=== PATIENT | female | born 1985 | race African-American/Black ===

== ENCOUNTER 2017-01-08 03:39 | Inpatient (IN) | payer OTHER ==
[2017-01-08] MEDS ORDERED: DEXTROSE 5%-LACTATED RINGERS 1,000 ML IV SCH (04:30)
[2017-01-08] MEDS ORDERED: PROMETHAZINE HCL 25 MG/1 ML VIAL IVPUSH ONE (04:33)
[2017-01-08] MEDS ORDERED: BUTORPHANOL TARTRATE 1 MG/ML VIAL IVPB ONE (04:33)
[2017-01-08] MEDS ORDERED: AMPICILLIN - 2 GM in SODIUM CHLORIDE 100 ML IVPB ONE (04:36)
[2017-01-08 04:41] LABS: BASOPHIL 0.4 % (0-2.0); EOSINOPHIL 1.2 % (0-4.5); MCH 23.7 pg (25.7-33.7); MCHC 32.3 g/dl (32.0-36.0); MEAN CELL VOLUME 73.2 fl (80-96); NEUTROPHILS 73.9 % (42.8-82.8); PLATELET COUNT 138 K/MM3 (134-434); RDW 15.5 % (11.6-15.6); WHITE BLOOD COUNT 9.5 K/mm3 (4.0-10.0)
[2017-01-08 05:02] LABS: INR 0.95 (0.82-1.09); PROTHROMBIN TIME (PATIENT) 10.4 SEC (9.98-11.88)
[2017-01-08 05:05] LABS: ACTIVATED PTT 26.2 SECONDS (26.9-34.4)
--- NOTE | 2017-01-08 05:05 | HP ---
Past Medical History - Primary Care Physician PCP:: Carmen Govea - Admission Chief Complaint: 31 yrs , , 40.2/7 weeks iup , with previous LFTC/ section , onset LP since 2.00AM & SROM since 3.00AM , requests for trial History of Present Illness: care late transferred from [facility] , to [address] [place] [address] at 34 weeks gestation . chart reviewed .wt gain 50 lbs 06/04/16 sono 9.1 weeks, assigned EDC as 01/06/17 O Pos, Rpr nr, Hiv neg, neg, Hbsag neg, , Rubella immune , Sickle neg, pap NiLM, quad screen neg, GCT 139 ( on 10/03/16), 3 hr GTT ( 71, 173, 143, 122) , PPD neg ( 07/13/16) 36 weeks culture 12/09/16 , gc/ct neg,GBS pos, h/h 10.7/33.2. 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 Weeks Gestation by Dates: 39.3 ...EDC by Dates: 01/12/17 ...EDC by Sono: 01/06/17 (40.2 ) Heme/Onc: Yes: Anemia Infectious Disease: No: AIDS, HIV, STD's, Tuberculosis Psych: No: Addictions, Anxiety, Bipolar, Depression Endocrine: No: Diabetes Insipidus, Diabetes Mellitus - Past Surgical History Past Surgical History: Yes: Appendectomy (2001), (05/10/2015) Hx Myomectomy: No Hx Transabdominal Cerclage: No - Smoking History Smoking history: Never smoked Have you smoked in the past 12 months: No - Alcohol/Substance Use Hx Alcohol Use: No History of Substance Use: reports: None Home Medications - Allergies Allergies/Adverse Reactions: Allergies Allergy/AdvReac Type Severity Reaction Status Date / Time No Known Allergies Allergy Verified 01/08/17 04:32 - Home Medications Home Medications: Ambulatory Orders Ferrous Sulfate [Feosol] 325 mg PO BID 01/08/17 Vitamins (Sjr) - 1 tab PO DAILY 01/08/17 Physical Exam - Maternity Vital Signs: Selected Entries 01/08/17 04:00 Temperature 98.5 F Pulse Rate 107 H Blood Pressure 126/87 Weight 179 lb Constitutional: Yes: Well Nourished, Mild Distress, Obese Eyes: Yes: WNL HENT: Yes: WNL, Normocephalic Neck: Yes: WNL Cardiovascular: Yes: WNL, Regular Rate and Rhythm Lungs: Clear to auscultation Breast(s): Yes: WNL - Abdominal Exam/OB Fundal Height: 38 Number of Fetuses: Single Presentation: Vertex Contractions: Yes Regularity: Irregular (3-5 min) Intensity: Mild/Mod Monitor Mode: External Heart Rate (range): 155-160 Heart Rate Location: [facility] Category: I Accelerations: Uniform Decelerations: None - Vaginal Exam/OB Vaginal Bleediing: No Speculum Exam: No Dilatation (cm): 2-3 Effacement (%): 60 Amniotic Membrane Status: Ruptured Nitrazine Test: Positive Amniotic Fluid: Yes: Clear Presentation: Vertex/Position Station: -3 - Physical Exam Musculoskeletal: Yes: WNL Extremities: Yes: WNL. No: Calf Tenderness Edema: Yes Edema: LLE: 1+, RLE: 1+ Integumentary: Yes: Incision (old pfannensteil scar) Deep Tendon Reflex Grade: Normal +2 ...Motor Strength: WNL Psychiatric: Yes: WNL, Alert, Oriented - Labs Lab Results: Laboratory Tests 01/08/17 01/08/17 01/08/17 04:30 04:30 04:30 WBC 9.5 Hgb 11.6 Hct 35.8 Plt Count 138 Neutrophils % 73.9 Lymphocytes % 17.8 PT with INR 10.40 INR 0.95 PTT (Actin FS) 26.2 L Sodium 138 Potassium 3.9 Chloride 105 Carbon Dioxide 21 BUN 6 L Creatinine 0.6 Random Glucose 161 H Calcium 9.0 Problem List - Problems (1) Post term over 40 weeks Code(s): O48.0 - POST-TERM (2) Previous section Code(s): Z98.891 - HISTORY OF UTERINE SCAR FROM PREVIOUS SURGERY (3) SROM (spontaneous rupture of membranes) Code(s): FIF8921 - (4) Labor established Code(s): MCP0183 - (5) Positive GBS test Code(s): B95.1 - STREPTOCOCCUS, GROUP B, CAUSING DISEASES CLASSD ELSWHR Assessment/Plan 31 yrs , 40.2 weeks by sono, 39.3/7 weeks by dates , previous lftc/s , GBS pos , presented with srom & early labor pt desires Plan TOLAC pt explained r/b/a of trial after c/section possible rupture ut, distress, hemorrhage etc she understands , desires TOLAC GBS prophylaxis stadol + phenrgan for labor analgesia
[2017-01-08 05:07] LABS: ANION GAP 12 (8-16); CO2 21 mmol/L (21-32); CREATININE 0.6 mg/dL (0.55-1.02); GLUCOSE,RANDOM 161 mg/dL (74-106)
[2017-01-08 05:50] VITALS: BMI 28.8
[2017-01-08] MEDS ORDERED: CITRIC ACID/SODIUM CITRATE 30 ML UNIT-DOSE CUP PO ONE (06:00)
[2017-01-08] MEDS ORDERED: ELECTROLYTE-148 SOLN 1,000 ML IV SCH (06:00)
--- NOTE | 2017-01-08 06:09 | PN ---
Progress Note, Labor Vaginal Exam #1 Labor Exam Date: 01/08/17 Labor Exam Time: 05:45 Heart Rate (range): 170 Dilatation: 2cm Effacement (%): 60 Amniotic Membrane Status: Ruptured Presentation: Vertex/Position Station: -3 Remarks: uc irregular , 3-5 min mild tp moderate FHr cat-2 she receieved 2 gm of Iv Ampicillin at 4.30 AM Plan In view of tachycardia, previous c/section, early labor , Pos GBS I recommended her, It will be prudent to perform repeat c/section now instead od continuing trial of labor . pt agrees . Plan delivery by repeat C/section Selected Entries 01/08/17 05:00 Temperature 98.2 F Pulse Rate 102 H Blood Pressure 116/64
[2017-01-08 07:56] LABS: ARTERIAL BLOOD GAS BASE EXCESS -9.8 meq/l (-2-2); ARTERIAL BLOOD GAS HCO3 23.6 meq/L (22-26); ARTERIAL BLOOD GAS PO2 11.8 mmHg (80-100)
[2017-01-08 07:58] LABS: LPM/O2% 21%; PT. ON O2? NO
[2017-01-08 07:59] LABS: ARTERIAL BLD GAS O2 SATURATION 9.8 % (90-98.9); ARTERIAL BLOOD GAS BASE EXCESS -8.3 meq/l (-2-2); ARTERIAL BLOOD GAS HCO3 22.4 meq/L (22-26); ARTERIAL BLOOD GAS PO2 20.5 mmHg (80-100); TYPE OF O2 room air
[2017-01-08 08:00] LABS: ARTERIAL BLOOD GAS pH 7.07 (7.35-7.45); PT. ON O2? no
[2017-01-08 08:01] LABS: ARTERIAL BLD GAS O2 SATURATION 24.1 % (90-98.9); ARTERIAL BLOOD GAS pH 7.15 (7.35-7.45); LPM/O2% 21%; TYPE OF O2 room air
[2017-01-08] MEDS ORDERED: ONDANSETRON 4 MG/2 ML VIAL IVPUSH PRN (08:16)
[2017-01-08] MEDS ORDERED: METHYLERGONOVINE MALEATE 0.2 MG/1 ML AMP IM PRN (09:29)
[2017-01-08] MEDS: D5W-LR W/ 20 UNITS OXYTOCIN 1,000 ML IV SCH ×2 (09:55→18:18)
[2017-01-08] MEDS: IBUPROFEN 800 MG/8 ML IJ IVPB PRN ×2 (09:55→21:22)
[2017-01-08] MEDS ORDERED: CEFAZOLIN 1 GM in DEXTROSE 5%-WATER - 50 ML IVPB SCH (10:00)
--- NOTE | 2017-01-08 12:59 | PN ---
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 later transfer at , [facility] GBS pos , one dose of IV Ampicillin 2gm given FHR tachycardia 170-180 noted, non reassuring FHR diagnosed Intraop meconium stained fluid noed, no fluid , appeared to be terminal meconium Intraop course was uneventful
--- NOTE | 2017-01-08 13:07 | OP ---
Operative Note - Note: Operative Date: 01/08/17 Pre-Operative Diagnosis: 40.2 weeks, failed TOLAC, Non reassuring FHR , tachycardia , pos GBS Operation: Repeat LFTC/section Findings: 7.30 AM, baby Boy, Vx Lot, 9/9, wt 7'6" Both tubes & ovaries normal Dr Zafar Case present in OR . Intraop 2 gm Iv Ancef was given prior to incision Surgeon: Carmen Govea Patient Sitter: Riaz Ahmadi Anesthesiologist/HEDGE FUND PRINCIPAL: Jeffry Marsh Anesthesia: Spinal Specimens Removed: placenta. cord blood gas. cord blood Estimated Blood Loss (mls): 800 Drains, Volume Out (mls): 100 (matthew milagros color ) Operative Report Dictated: Yes
[2017-01-08] MEDS: CEFAZOLIN 1 GM in DEXTROSE 5%-WATER - 50 ML IVPB SCH ×2 (13:47→23:24)
--- NOTE | 2017-01-08 13:50 | OP ---
DATE OF OPERATION: 01/08/2017 PREOPERATIVE DIAGNOSIS: A 40.2-week failed trial of labor after section, nonreassuring heart, tachycardia, and rupture of membranes. ANESTHESIA: Spinal anesthesia. SURGEON: Carmen Govea MD ROCKET ENGINE COMPONENT MECHANIC SURGEON: MAT Avila ANESTHESIOLOGIST: Jeffry Marsh MD INTERVENTIONAL PHYSIATRIST: Andrade Saldivar MD FINDINGS: This is a 31-year-old 3, para 1-0-1-1, is 40.2 weeks, presented in labor and rupture of membranes. Labor since 2 a.m., rupture of membranes since 3 a.m., wanted to have a trial of labor after . She is GBS positive. She was given 2 g of IV ampicillin. After a couple of hours, tachycardia to 170-180 beats per minute was noted, so it was decided to deliver the patient by . There was no change in the cervical dilatation beyond 2-3 cm dilatation, 60% effacement. DESCRIPTION OF PROCEDURE: The patient was taken to the operating room. Hicks catheter was placed and then the abdomen was shaved, prepped. Spinal anesthesia was given. She was placed in supine position. Previous keloid incision scar was excised. Skin and subcutaneous tissue, anterior rectus sheath were incised transversely. Bleeding points were clamped and cauterized, then the rectus muscle was from the rectus sheath. Parietal peritoneum was opened vertically. Lower flap of the peritoneum was incised transversely, then lower uterine segment was incised transversely. Amniotic fluid was minimal and meconium was noted. Baby was delivered from LOT position at 7:30 a.m. Baby's was 9, 9, baby boy, and 7 pounds 6 ounces was the weight. Cord was clamped, and a cord segment was collected for the cord blood gases, and also the cord blood was collected. Placenta was removed completely with the membranes and sent for pathology examination. Then the uterus was delivered out of the incision. Uterine cavity was cleaned and the uterine incision was closed in 2 layers. First layer was a continuous locking with Biosyn 0 suture. Second layer was a continuous intermittent locking with the Biosyn 0 suture. Hemostasis was verified, and bladder peritoneum was closed with interrupted sutures with Biosyn 0 suture. Both tubes and ovaries were normal. Irrigation was done. Uterus was placed back into the peritoneal cavity. Sponge, instrument, needle count was correct, and then the closure of the abdomen was done. Parietal peritoneum was closed with Vicryl 0 suture. Muscles were approximated together with Biosyn 0 suture. Interrupted sutures were taken. Then the anterior rectus sheath was from the skin adhesions, and then anterior rectus sheath was closed with 0 Vicryl suture. Continuous sutures were taken. Hemostasis was noted. Then subcutaneous tissue hemostasis was checked, and then interrupted sutures were taken in subcutaneous tissue with the Biosyn 0 suture. Then skin was approximated with 4-0 Biosyn V-Loc stitch on a V-Loc needle. The patient tolerated the procedure well. Pressure dressing was applied. Before that, Steri-Strips also were used. Blood clots were removed from the vagina. She was sent to the recovery room in stable condition. Estimated blood loss was 800 mL, and urine output was 100 mL. Nelson [id number]
[2017-01-08] MEDS: AMPICILLIN - 1 GM in SODIUM CHLORIDE 100 ML IVPB SCH ×2 (13:53→13:54)
[2017-01-08] MEDS ORDERED: ceFAZolin SODIUM 1 GM VIAL ONE (21:57)
[2017-01-08] MEDS ORDERED: DEXTROSE 5%-WATER - 50 ML IVPB ONE (21:57)
[2017-01-09] MEDS: D5W-LR W/ 20 UNITS OXYTOCIN 1,000 ML IV SCH (04:30)
[2017-01-09] MEDS ORDERED: ceFAZolin SODIUM 1 GM VIAL ONE (05:47)
[2017-01-09] MEDS ORDERED: DEXTROSE 5%-WATER - 50 ML IVPB ONE (05:47)
[2017-01-09] MEDS: CEFAZOLIN 1 GM in DEXTROSE 5%-WATER - 50 ML IVPB SCH (05:53)
[2017-01-09] MEDS: IBUPROFEN 800 MG/8 ML IJ IVPB PRN (06:17)
[2017-01-09] MEDS ORDERED: oxyCODONE HCL 5 MG TABLET PO PRN (08:00)
[2017-01-09 08:52] LABS: BASOPHIL 0.2 % (0-2.0); EOSINOPHIL 0.6 % (0-4.5); MCH 22.6 pg (25.7-33.7); MEAN PLT VOLUME 9.9 fl (7.5-11.1); NEUTROPHILS 84.4 % (42.8-82.8); PLATELET COUNT 139 K/MM3 (134-434); RDW 15.4 % (11.6-15.6)
--- NOTE | 2017-01-09 09:03 | PN ---
Progress Note, Physician Chief Complaint: Pt. ambulating and voiding, pain controlled, no anesthesia complaints. - Current Medication List Current Medications: Active Medications Acetaminophen (Tylenol -) 650 mg PO Q4H PRN PRN Reason: FEVER OR PAIN Bisacodyl (Dulcolax Suppository -) 10 mg RC PRN PRN PRN Reason: CONSTIPATION Diphenhydramine HCl (Benadryl Injection -) 25 mg IVPUSH Q4H PRN PRN Reason: itching Last Admin: 01/08/17 09:55 Dose: 25 mg Diphtheria/Tetanus/Acell Pertussis (Boostrix -) 0.5 ml IM .ONCE ONE Stop: 01/09/17 10:01 Enoxaparin Sodium (Lovenox -) 40 mg SQ DAILY [facility] Ferrous Sulfate (Feosol -) 325 mg PO BID [facility] Dextrose/Lactated Ringer's (Pitocin 20 Units In D5-Lr -) 1,000 mls @ 125 mls/ hr IV ASDIR [facility] Last Admin: 01/09/17 04:30 Dose: 125 mls/hr Cefazolin Sodium 1 gm/ (Dextrose) 50 mls @ 100 mls/hr IVPB Q8H [facility] Stop: 01/09/17 13:59 Last Admin: 01/09/17 05:53 Dose: 100 mls/hr Ibuprofen (Motrin -) 600 mg PO Q4H PRN PRN Reason: PAIN Methylergonovine Maleate (Methergine Injection -) 0.2 mg IM Q4H PRN PRN Reason: Excessive Bleeding (L&D) Oxycodone HCl (Roxicodone -) 5 mg PO Q4H PRN PRN Reason: PAIN LEVEL 1-5 Oxycodone HCl (Roxicodone -) 10 mg PO Q4H PRN PRN Reason: PAIN LEVEL 6-10 Multivit/Folic Acid/Iron ( Vitamins (Sjr) -) 1 tab PO DAILY [facility] Senna/Docusate Sodium (Pericolace -) 2 tablet PO HS PRN PRN Reason: CONSTIPATION Simethicone (Mylicon -) 80 mg PO Q4H PRN PRN Reason: GAS - Objective Vital Signs: Vital Signs Temperature 98.0 F 01/09/17 05:33 Pulse Rate 87 01/09/17 05:33 Respiratory Rate 18 01/09/17 06:08 Blood Pressure 110/67 01/09/17 05:33 O2 Sat by Pulse Oximetry (%) 100 01/08/17 09:45 Constitutional: Yes: Well Nourished, No Distress, Calm Musculoskeletal: Yes: WNL Neurological: Yes: WNL, Alert, Oriented ...Motor Strength: WNL Labs: CBC, BMP 01/09/17 07:10 01/08/17 04:30 INR, PTT INR 0.95 (0.82-1.09) 01/08/17 04:30 Assessment/Plan POD#1 s/p Repeat under spinal with duramorph. Doing well. D/C from anesthesia care.
[2017-01-09] MEDS ORDERED: BISACODYL 10 MG SUPP.RECT RC PRN (09:29)
--- NOTE | 2017-01-09 09:51 | PN ---
Post Progress Note - Subjective Subjective: 31 yo Para 2, status post repeat , seen and evaluated. Doing well. Post Day: 1 Type of Delivery: Repeat C/S Vital Signs: Vital Signs Temperature 98.0 F 01/09/17 05:33 Pulse Rate 87 01/09/17 05:33 Respiratory Rate 18 01/09/17 06:08 Blood Pressure 110/67 01/09/17 05:33 O2 Sat by Pulse Oximetry (%) 100 01/08/17 09:45 Breast Exam: Yes: Soft Uterus: Yes: Fundus Firm Incision: Yes: Dressing dry and intact Abdomen/GI: Yes: Abdomen soft, Tolerating PO Lochia: Yes: Rubra Lochia, amount: Small Extremities: Yes: Calves non-tender Perineum: Yes: Intact Activity: Ambulating - Labs Labs: CBC WBC 15.0 K/mm3 (4.0-10.0) H D 01/09/17 07:10 RBC 4.56 M/mm3 (3.60-5.2) 01/09/17 07:10 Hgb 10.3 GM/dL (10.7-15.3) L D 01/09/17 07:10 Hct 33.3 % (32.4-45.2) 01/09/17 07:10 MCV 73.0 fl (80-96) L 01/09/17 07:10 MCH 22.6 pg (25.7-33.7) L 01/09/17 07:10 MCHC 31.0 g/dl (32.0-36.0) L 01/09/17 07:10 RDW 15.4 % (11.6-15.6) 01/09/17 07:10 Plt Count 139 K/MM3 (134-434) 01/09/17 07:10 MPV 9.9 fl (7.5-11.1) 01/09/17 07:10 Neutrophils % 84.4 % (42.8-82.8) H 01/09/17 07:10 Lymphocytes % 8.0 % (8-40) D 01/09/17 07:10 Monocytes % 6.8 % (3.8-10.2) 01/09/17 07:10 Eosinophils % 0.6 % (0-4.5) 01/09/17 07:10 Basophils % 0.2 % (0-2.0) 01/09/17 07:10 Problem List - Problems (1) Status post repeat low transverse section Code(s): Z98.891 - HISTORY OF UTERINE SCAR FROM PREVIOUS SURGERY Assessment/Plan Status post repeat Stable Ambulation Analgesia as needed Continue routine post op care
[2017-01-09] MEDS ORDERED: FLU VACC QS2017-18 36MOS UP/PF 60 MCG/0.5 ML SYRINGE IM ONE ×2 (10:00→22:15)
[2017-01-09] MEDS: ENOXAPARIN NA (PORCINE) 40 MG/0.4 ML DISP.SYRIN SQ SCH (10:00)
[2017-01-09] MEDS: PRENATAL VITAMINS W/ FOLIC ACID TABLET (FP) PO SCH (10:03)
[2017-01-09] MEDS ORDERED: DIPHTH,PERTUSS(ACELL),TET 0.5 ML DISP.SYRIN IM ONE (12:15)
[2017-01-09] MEDS: IBUPROFEN 600 MG TABLET (FP) PO PRN ×2 (14:33→21:51)
[2017-01-09] MEDS: ACETAMINOPHEN 325 MG TABLET (FP) PO PRN (14:34)
[2017-01-09] MEDS: SIMETHICONE 80 MG TAB.CHEW (FP) PO PRN ×2 (14:35→21:51)
[2017-01-09] MEDS: SENNOSIDES/DOCUSATE COMBO (SENNA PLUS) TABLET (UD) PO PRN (21:51)
[2017-01-09] MEDS: FERROUS SO4 325 MG TABLET (FP) PO SCH (21:51)
[2017-01-09] MEDS: oxyCODONE HCL 5 MG TABLET PO PRN (21:53)
[2017-01-10] MEDS: IBUPROFEN 600 MG TABLET (FP) PO PRN (05:46)
[2017-01-10] MEDS: SIMETHICONE 80 MG TAB.CHEW (FP) PO PRN ×3 (05:46→21:03)
[2017-01-10] MEDS: oxyCODONE HCL 5 MG TABLET PO PRN ×2 (05:47→13:51)
[2017-01-10] MEDS: PRENATAL VITAMINS W/ FOLIC ACID TABLET (FP) PO SCH (11:08)
[2017-01-10] MEDS: FERROUS SO4 325 MG TABLET (FP) PO SCH ×2 (11:08→21:03)
[2017-01-10] MEDS: ENOXAPARIN NA (PORCINE) 40 MG/0.4 ML DISP.SYRIN SQ SCH (11:08)
--- NOTE | 2017-01-10 13:27 | PATH ---
Surgical Pathology Report Patient Name: ADAL ARMIJO [facility]. Rec. #: [id number] /Age/Gender: 1985 (Age: 31) / F Account: [id number] Location: 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 Specimen(s) Received PLACENTA Clinical History , 40.2 weeks Repeat section - tachycardia Final Diagnosis PLACENTA, DELIVERY: INTACT, SMALL (<400 GM), THIRD TRIMESTER PLACENTA WITH MILD TO MODERATE PREVILLOUS, PERIVILLOUS, AND PRECHORIONIC FIBRIN DEPOSITION, CALCIFICATIONS, THREE VESSEL UMBILICAL CORD, AND PLACENTAL MEMBRANES WITH ACUTE CHORIOAMNIONITIS, FOCAL ACUTE INFLAMMATION OF CHORIONIC PLATE AND CIRCUMMARGINATE INSERTION. Electronically Signed Andrey Farnsworth M.D. Gross Description The specimen is received fresh, labeled "placenta" and is a 396 gram, 15 x 15 x 2.7 cm placenta with attached membranes and umbilical cord. The attached membranes are whyte, focally opaque and insert in a circummarginate manner crossing half of the placental disc. The umbilical cord measures 21 cm in length and averages 1.3 cm in diameter. The cord inserts eccentrically, 6 cm to the nearest margin. No true knots or strictures are identified. Cut surface of the umbilical cord reveals 3 vessels. The surface is blackburn-blue with fibrin deposition and appropriate caliber vessels. The maternal surface is lobulated and appears complete with no adherent blood clots or areas of thinning. Sectioning reveals red-brown, spongy parenchyma. No focal lesions are identified. Infant Caregiver sections are submitted in three cassettes as follows: 1- membrane rolls and umbilical cord; 2-3- full thickness sections of placenta. [facility] [[email or web address]01/09/2017 [facility]/01/09/2017
[2017-01-10] MEDS: ACETAMINOPHEN 325 MG TABLET (FP) PO PRN ×2 (13:52→21:04)
--- NOTE | 2017-01-10 16:26 | PN ---
Progress Note (short form) - Note Progress Note: pod 2 doing well, passing gas CBC, BMP 01/09/17 07:10 01/08/17 04:30 Last Vital Signs Temp Pulse Resp BP Pulse Ox 98.1 F 91 H 20 117/70 100 01/10/17 10:00 01/10/17 10:00 01/10/17 10:00 01/10/17 10:00 01/08/17 09:45 abdomen soft , no distension , no cva incision dry, clean no calf tenderness plan ambulate, cbc in am
[2017-01-11] MEDS: oxyCODONE HCL 5 MG TABLET PO PRN (06:27)
[2017-01-11] MEDS: ACETAMINOPHEN 325 MG TABLET (FP) PO PRN ×2 (06:28→18:02)
[2017-01-11 08:45] LABS: BASOPHIL 0.7 % (0-2.0); EOSINOPHIL 1.7 % (0-4.5); MCH 23.1 pg (25.7-33.7); MCHC 31.9 g/dl (32.0-36.0); MEAN CELL VOLUME 72.5 fl (80-96); MEAN PLT VOLUME 9.5 fl (7.5-11.1); NEUTROPHILS 70.5 % (42.8-82.8); PLATELET COUNT 178 K/MM3 (134-434); RDW 15.3 % (11.6-15.6); WHITE BLOOD COUNT 7.4 K/mm3 (4.0-10.0)
[2017-01-11] MEDS: PRENATAL VITAMINS W/ FOLIC ACID TABLET (FP) PO SCH (09:00)
[2017-01-11] MEDS: IBUPROFEN 600 MG TABLET (FP) PO PRN ×2 (10:37→18:00)
[2017-01-11] MEDS: ENOXAPARIN NA (PORCINE) 40 MG/0.4 ML DISP.SYRIN SQ SCH (10:37)
[2017-01-11] MEDS: FERROUS SO4 325 MG TABLET (FP) PO SCH ×2 (10:51→22:08)
[2017-01-11] MEDS: SIMETHICONE 80 MG TAB.CHEW (FP) PO PRN ×2 (10:53→17:59)
--- NOTE | 2017-01-11 14:05 | PN ---
Post Progress Note Post Day: 3 Type of Delivery: Repeat C/S Vital Signs: Vital Signs Temperature 98.4 F 01/11/17 10:00 Pulse Rate 78 01/11/17 10:00 Respiratory Rate 14 01/11/17 10:00 Blood Pressure 117/76 01/11/17 10:00 O2 Sat by Pulse Oximetry (%) 100 01/08/17 09:45 Breast Exam: Yes: Soft Uterus: Yes: Fundus Firm Incision: Yes: Sutures intact Abdomen/GI: Yes: Abdomen soft Lochia: Yes: Rubra Lochia, amount: Small Extremities: Yes: Calves non-tender Perineum: Yes: Intact - Labs Labs: CBC WBC 7.4 K/mm3 (4.0-10.0) D 01/11/17 08:15 RBC 4.30 M/mm3 (3.60-5.2) 01/11/17 08:15 Hgb 9.9 GM/dL (10.7-15.3) L 01/11/17 08:15 Hct 31.2 % (32.4-45.2) L 01/11/17 08:15 MCV 72.5 fl (80-96) L 01/11/17 08:15 MCH 23.1 pg (25.7-33.7) L 01/11/17 08:15 MCHC 31.9 g/dl (32.0-36.0) L 01/11/17 08:15 RDW 15.3 % (11.6-15.6) 01/11/17 08:15 Plt Count 178 K/MM3 (134-434) D 01/11/17 08:15 MPV 9.5 fl (7.5-11.1) 01/11/17 08:15 Neutrophils % 70.5 % (42.8-82.8) 01/11/17 08:15 Lymphocytes % 19.5 % (8-40) D 01/11/17 08:15 Monocytes % 7.6 % (3.8-10.2) 01/11/17 08:15 Eosinophils % 1.7 % (0-4.5) D 01/11/17 08:15 Basophils % 0.7 % (0-2.0) D 01/11/17 08:15 Assessment/Plan doing well no complaints oob
[2017-01-11] MEDS: SENNOSIDES/DOCUSATE COMBO (SENNA PLUS) TABLET (UD) PO PRN (22:08)
--- NOTE | 2017-01-11 22:57 | DS ---
Physical Exam-VULCANIZER Vital Signs: Vital Signs Temperature 98.6 F 01/11/17 20:34 Pulse Rate 87 01/11/17 20:34 Respiratory Rate 18 01/11/17 20:34 Blood Pressure 135/72 01/11/17 20:34 O2 Sat by Pulse Oximetry (%) 100 01/08/17 09:45 Constitutional: Yes: Well Nourished, Pallor Eyes: Yes: WNL HENT: Yes: WNL Neck: Yes: WNL Cardiovascular: Yes: WNL Respiratory: Yes: WNL Gastrointestinal: Yes: WNL, Normal Bowel Sounds, Soft, Abdomen, Obese. No: Distention ...Rectal Exam: Yes: WNL Renal/: Yes: WNL ....Post : Yes: Uterus firm, Uterus non-tender, Moderate lochia rubra Breast(s): Yes: WNL Musculoskeletal: Yes: WNL Extremities: Yes: WNL. No: Calf Tenderness Edema: Yes Edema: LLE: 1+, RLE: 1+ Integumentary: Yes: WNL Wound/Incision: Yes: Clean/Dry, Well Approximated, Sutures Intact, Steri Strips , Open to air. No: Draining, Reddened, Bleeding Neurological: Yes: WNL, Alert, Oriented ...Motor Strength: WNL Labs: CBC, BMP 01/11/17 08:15 01/08/17 04:30 Delivery - Delivery Section: Repeat, Low Flap Transverse (40.2 weeks, previous c/section, non reassuring FHR ( tachycardia), SROm) Type of Anesthesia: Spinal Episiotomy/Laceration: None EBL (cc): 800 (urine output 100 ml milagros color ) Delivery, Single - Stages of Labor Date 1st Stage Initiatied: 01/08/17 Time 1st Stage Initiated: 02:00 Date of Delivery: 01/08/17 Time of Delivery: 07:30 Time Placenta Delivered: 07:31 Placenta: Yes: Manual Removal, Uterine Exploration - Condition of Snack Stewardess/Promotional Marketing Analyst Present: Yes Name: Andrade Saldivar Infant Gender: Male Weight: 7 lb 6 oz Position: Left, OT Total Hours ROM (Hrs/Mins): , meconium terminal , - 1 Minute Total Score: 9 5 Minutes Total Score: 9 - Feeding Plan Initial Plan: Elected not to breastfeed exclusively throughout hospitalization Remarks - Remarks Remarks: 31 yrs , 40.2 weeks, previous c/section, in labor & SROM, requestted for TOLAC . later transfer at [address] [place] [address] GBS pos , one dose of IV Ampicillin 2gm given FHR tachycardia 170-180 noted, non reassuring FHR diagnosed Intraop meconium stained fluid noed, no fluid , appeared to be terminal meconium Intraop course was uneventful Post op course uneventful, afebrile Anemia counselled She will rtc 1 week for wound check Discharge 01/12/2017 Discharge Summary Reason For Visit: LABOR Current Active Problems Labor established (Acute) Non-reassuring electronic monitoring tracing (Acute) Positive GBS test (Acute) Post term over 40 weeks (Acute) Previous section (Acute) SROM (spontaneous rupture of membranes) (Acute) Status post repeat low transverse section (Acute) Condition: Stable - Instructions Diet, Activity, Other Instructions: Post Instructions DIET: Continue good diet high in protein, calcium, and iron rich foods. Drink at least eight (8) glasses of water daily in addition to other fluids. ___ Regular diet MEDICATIONS: Continue vitamins and iron as previously directed. Motrin and Tylenol may be taken for minor discomfort. ACTIVITY: Mild to moderate exercise may be started in two (2) weeks. Take frequent rest periods. Resume normal activity after six (6) week check up. WOUND CARE OF OPERATIVE SITE: Continue use of perineal bottle until vaginal discharge stops. Keep area clean. Shower daily. Keep abdominal wound dry. Report any drainage or redness to physician. Tub baths, tampons and douches are not permitted for [address] Breast feeding & or Bottle feeding BREAST CARE: (For those that are not breast feeding): If engorgement occurs: Wear tight fitting bra. Take Tylenol or Motrin for pain. Apply cold packs (ice in bags to each breast ) FAMILY PLANNING: There are many control alternatives to pursue and they should be discussed at your first office visit. You may resume sexual activity after your six (6) week check up. (Remember, breast feeding is not a contraceptive) NEXT PHYSICIAN APPOINTMENT: Be certain to call for a one (1) week appointment, unless otherwise directed.RTC [address] [place] [address] for wound check Call Clinic or got to Emergency Dept if you have any of the following: Heavy vaginal bleeding Painful urination Leg pain Unusual odor noted to vaginal bleeding High fever Red streaking noted on breast Referrals: Carmen Govea MD [Staff Physician] - Disposition: HOME - Home Medications Comprehensive Discharge Medication List: Ambulatory Orders Ferrous Sulfate [Feosol] 325 mg PO BID 01/08/17 Vitamins (Sjr) - 1 tab PO DAILY 01/08/17 Acetaminophen [Tylenol .Regular Strength -] 500 mg PO Q4H PRN #30 tablet Ferrous Sulfate [Feosol] 325 mg PO BID #60 tab 01/09/17 Ibuprofen [Motrin -] 600 mg PO Q4H PRN #30 tablet 01/09/17 Vitamins (Sjr) - 1 tab PO DAILY #30 tablet 01/09/17
[2017-01-12] MEDS: ACETAMINOPHEN 325 MG TABLET (FP) PO PRN (05:45)
[2017-01-12] MEDS: SIMETHICONE 80 MG TAB.CHEW (FP) PO PRN (05:45)
[2017-01-12] MEDS: IBUPROFEN 600 MG TABLET (FP) PO PRN (05:46)
[2017-01-12 08:26] VITALS: BP 124/56; PULSE 63; TEMP 98.5
[2017-01-12] MEDS: ENOXAPARIN NA (PORCINE) 40 MG/0.4 ML DISP.SYRIN SQ SCH (09:09)
[2017-01-12] MEDS: FERROUS SO4 325 MG TABLET (FP) PO SCH (09:09)
[2017-01-12] MEDS: PRENATAL VITAMINS W/ FOLIC ACID TABLET (FP) PO SCH (09:09)
== END 2017-01-12 13:00 | disposition home or self-care (01) | DRG 540 ==
LOC: JLDR 03:39 → J3W 13:39
PROVIDERS: ADMIT Obstetrics & Gynecology; ATTEND Obstetrics & Gynecology
PROC: 10D00Z1 Extraction of Products of Conception, Low, Open Approach (ICD-10-PCS; principal; 2017-01-08)
DX: O76 Abnormality in fetal heart rate and rhythm complicating labor and delivery (principal); E66.9 Obesity, unspecified; O66.40 Failed trial of labor, unspecified; O99.824 Streptococcus B carrier state complicating childbirth; O99.214 Obesity complicating childbirth; Z68.28 Body mass index [BMI] 28.0-28.9, adult; O34.211 Maternal care for low transverse scar from previous cesarean delivery; O48.0 Post-term pregnancy; Z3A.40 40 weeks gestation of pregnancy; Z37.0 Single live birth
CPT/HCPCS: 36415; 36600; 80048; 82803; 85025; 85610; 85730; 86593; 86850; 86900; 86901; 88307-TC; 90686; 90715; 94010; G0008

== ENCOUNTER 2018-08-07 06:03 | Day surgery (SDC) | payer OTHER ==
[2018-08-07 06:07] VITALS: BMI 27.4
[2018-08-07] MEDS ORDERED: SODIUM CHLORIDE 0.9% 500 ML INFUS.BAG IV ONE (06:52)
[2018-08-07 06:58] LABS: BASO % 0.8 % (0-2.0); EOS % 1.8 % (0-4.5); HEMOGLOBIN 10.7 GM/dL (10.7-15.3); LYMPH % 29.4 % (8-40); MCHC 31.6 g/dl (32.0-36.0); MEAN CELL VOLUME 72.7 fl (80-96); MONO % 6.3 % (3.8-10.2); NEUT % 61.7 % (42.8-82.8); PLATELET COUNT 217 K/MM3 (134-434); RBC 4.68 M/mm3 (3.60-5.2); WHITE BLOOD COUNT 6.1 K/mm3 (4.0-10.0)
[2018-08-07 07:05] LABS: INR 1.08 (0.83-1.09); PROTHROMBIN TIME (PATIENT) 12.8 SEC (9.7-13.0)
--- NOTE | 2018-08-07 07:26 | PDOC ---
Attending Attestation - Resident Resident Name: Corine Motta - ED Attending Attestation I have performed the following: I have examined & evaluated the patient, The case was reviewed & discussed with the resident, I agree w/resident's findings & plan, Exceptions are as noted - HPI HPI: 33 yo A1 (one prior miscarriage) presents with heavy vaginal bleeding. She states she had her first ob appointment at 12 weeks and they diagnosed a demise. She was prescribed misoprostol, which she started yesterday. She developed heavy bleeding, then felt lightheadedness today, called EMS. She has been filling large pads. - Physicial Exam PE: GENERAL: Awake, alert, and fully oriented, in no acute distress HEAD: No signs of trauma EYES: PERRLA, EOMI, sclera anicteric, conjunctiva clear ENT: Auricles normal inspection, hearing grossly normal, nares patent, oropharynx clear without exudates. Moist mucosa NECK: Normal ROM, supple, no lymphadenopathy, JVD, or masses LUNGS: Breath sounds equal, clear to auscultation bilaterally. No wheezes, and no crackles HEART: Regular rate and rhythm, normal S1 and S2, no murmurs, rubs or gallops ABDOMEN: Soft, nontender, normoactive bowel sounds. No guarding, no rebound. No masses EXTREMITIES: Normal range of motion, no edema. No clubbing or cyanosis. No cords, erythema, or tenderness NEUROLOGICAL: Cranial nerves II through XII grossly intact. Normal speech, normal gait. Motor and sensation intact SKIN: Warm, Dry, normal turgor, no rashes or lesions noted. : - Medical Decision Making Will call process development technician to discuss whether to add methergine or pitocin. Will give analgesics and fluids in the meantime, in progress.
[2018-08-07 07:28] LABS: ALBUMIN 3.1 g/dl (3.4-5.0); ALK PHOS 49 U/L (45-117); ANION GAP 8 MMOL/L (8-16); BILIRUBIN,TOTAL 0.2 mg/dL (0.2-1); BLOOD UREA NITROGEN 9 mg/dL (7-18); CALCIUM 8.2 mg/dL (8.5-10.1); CHLORIDE 106 mmol/L (98-107); CO2 19 mmol/L (21-32); CREATININE 0.4 mg/dL (0.55-1.3); GLUCOSE,RANDOM 97 mg/dL (74-106); POTASSIUM 3.8 mmol/L (3.5-5.1); SGOT/AST 18 U/L (15-37); SGPT/ALT 30 U/L (13-61); SODIUM 134 mmol/L (136-145); TOT PROT 6.2 g/dl (6.4-8.2)
--- NOTE | 2018-08-07 07:28 | PDOC ---
History of Present Illness - General Chief Complaint: Vaginal Bleeding Stated Complaint: VAGINAL BLEEDING Time Seen by Provider: 08/07/18 07:09 - History of Present Illness Initial Comments: 33yo A1 currently 12 weeks s/p misoprostol. Patient had an ultrasound for the first time this which did showed no heart tones. Patient was given misoprostol by her promotional marketing agent yesterday which she took around 1pm. Around 10pm, patient started having vaginal bleeding, about 10 [id number]-[id number]-[id number] size pads over nine hours. Endorses some intermittent "crampy" abdominal pain which she attributes to vaginal blood flowing out. No nausea or vomiting. Previous pregnancies resulted in live c-sections and 1 first -trimester miscarriage which was also medically managed. Patient reports diarrhea since taking the misoprostol. She is feeling weak and lightheaded. Patient reports the passage of clots but has not seen tissue. She endorses a near-syncopal episode which prompted her to come to the ED. No fevers , chills, chest pain, or shortness of breath. 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[place] [address] Past History - Past Medical History Allergies/Adverse Reactions: Allergies Allergy/AdvReac Type Severity Reaction Status Date / Time No Known Allergies Allergy Verified 08/07/18 06:07 Home Medications: Ambulatory Orders Ferrous Sulfate [Feosol] 325 mg PO BID 01/08/17 Vitamins (Sjr) - 1 tab PO DAILY 01/08/17 Acetaminophen [Tylenol .Regular Strength -] 500 mg PO Q4H PRN #30 tablet Ferrous Sulfate [Feosol] 325 mg PO BID #60 tab 01/09/17 Ibuprofen [Motrin -] 600 mg PO Q4H PRN #30 tablet 01/09/17 Vitamins (Sjr) - 1 tab PO DAILY #30 tablet 01/09/17 Asthma: No Cancer: No Cardiac Disorders: No COPD: No Diabetes: No HTN: No Seizures: No Thyroid Disease: No - Reproductive History Is Patient Now?: No - Suicide/Smoking/Psychosocial Hx Smoking History: Never smoked Have you smoked in the past 12 months: No Hx Alcohol Use: No Drug/Substance Use Hx: No Hx Substance Use Treatment: No Review of Systems - Review of Systems Comments:: Constitutional: no fever, no chills HEENT: no throat pain, no dysphagia Cardiovascular: no chest pain, no palpitations Respiratory: no cough, no shortness of breath Gastrointestinal: +abdominal pain, +diarrhea Genitourinary: no dysuria, +vaginal bleeding Musculoskeletal: no myalgia, no arthralgia Skin: no rash, no itching Neurologic: +weakness, +lightheaded *Physical Exam - Vital Signs Last Vital Signs Temp Pulse Resp BP Pulse Ox 80 18 108/76 100 08/07/18 06:05 08/07/18 06:05 08/07/18 06:05 08/07/18 06:05 - Physical Exam Comments: General: Awake, alert, and fully oriented, in no acute distress Head: No signs of trauma Eyes: EOMI, sclera anicteric ENT: Moist mucus membranes Neck: Normal ROM, supple Lungs: Lungs clear, Normal breath sounds Cardio: Regular rhythm, S1 and S2 present Abdomen: Mild tenderness to palpation in suprapubic region. No guarding, no rebound, no masses. No CVA tenderness. Extremities: Normal range of motion, Distal pulses present SKIN: Warm, Dry, normal turgor Neurologic: Cranial nerves II through XII grossly intact. Normal speech Pelvic: External genitalia without erythema or lesion. Vaginal vault is with significant blood and clots. ED Treatment Course - LABORATORY CBC & Chemistry Diagram: 08/07/18 13:37 08/07/18 06:38 - ADDITIONAL ORDERS Additional order review: Laboratory Results 08/07/18 06:38 PT with INR 12.80 INR 1.08 08/07/18 06:38 RBC 4.68 MCV 72.7 L MCHC 31.6 L RDW 15.0 MPV 10.0 Neutrophils % 61.7 Lymphocytes % 29.4 D Monocytes % 6.3 Eosinophils % 1.8 Basophils % 0.8 - Medications Given in the ED: ED Medications Discontinued Medications Generic Name Dose Route Start Last Admin Trade Name Freq PRN Reason Stop Dose Admin Sodium Chloride 1,000 ml 08/07/18 06:52 08/07/18 07:12 Normal Saline - IV 08/07/18 06:53 1,000 ml ONCE ONE Administration Medical Decision Making - Medical Decision Making 33yo A1 currently 12 weeks s/p misoprostol. DDX including but not limited to incomplete with intrauterine hemorrhage, ectopic , retained products of conception, vaginal trauma CBC, CMP, B-hcg, TS, PT/INR Previous TS show patient is Rh+ 650mg tylenol 1L NS 08/07/18 07:[address] Hemphill, patient recommended for period of observation in the ED to monitor further for heavy bleeding Methergine given Patient with pre-syncopal episode while moving from room 5 to stretcher Subseqently, had large episode of diarrhea Immodium given Another 1L NS given 08/07/18 09:52 Patient still with vaginal bleeding TVUS ordered Repeat CBC 08/07/18 12:26 TVUS: "Pelvis ultrasound, transabdominal and transvaginal The uterus measures 11.3 x 6.3 cm in sagittal and AP dimension. Endometrial stripe measures 2.2 cm in thickness with a heterogeneous echotexture. There is a complex masslike density within the cervical canal measuring 3.4 x 2.5 cm with suggestion of peripheral color Doppler flow that may represent retained proximal of conception. Nonvisualization of the left ovary. Normal appearing right ovary measuring 2.9 x 1.5 cm with normal vascular flow. There is no free fluid in the cul-de-sac IMPRESSION: Thickened endometrial stripe measuring 2.2 cm in AP dimension. Complex masslike density within the cervix with suggestion of peripheral vascular flow measuring 3.4 x 2.5 cm suspicious for retained products of conception, considering the clinical history. OB/ DRAW BENCH OPERATOR consult is suggested." Patient continues to endorse vaginal bleeding Will page Dr. Hemphill 08/07/18 14:21 CBC WBC 9.6 K/mm3 (4.0-10.0) 08/07/18 13:37 RBC 3.72 M/mm3 (3.60-5.2) 08/07/18 13:37 Hgb 8.5 GM/dL (10.7-15.3) L 08/07/18 13:37 Hct 26.9 % (32.4-45.2) L D 08/07/18 13:37 MCV 72.3 fl (80-96) L 08/07/18 13:37 MCH 22.9 pg (25.7-33.7) L 08/07/18 13:37 MCHC 31.7 g/dl (32.0-36.0) L 08/07/18 13:37 RDW 15.4 % (11.6-15.6) 08/07/18 13:37 Plt Count 209 K/MM3 (134-434) 08/07/18 13:37 MPV 10.1 fl (7.5-11.1) 08/07/18 13:37 Absolute Neuts (auto) 7.6 K/mm3 (1.5-8.0) 08/07/18 13:37 Neutrophils % 79.6 % (42.8-82.8) D 08/07/18 13:37 Lymphocytes % 16.9 % (8-40) D 08/07/18 13:37 Monocytes % 2.8 % (3.8-10.2) L 08/07/18 13:37 Eosinophils % 0.2 % (0-4.5) D 08/07/18 13:37 Basophils % 0.5 % (0-2.0) 08/07/18 13:37 Nucleated RBC % 0 % (0-0) 08/07/18 13:37 Hgb 10.7-->8.5 08/07/18 14:[address] Hemphill who will perform D&C for incomplete with hemorrhage 08/07/18 14:39 Patient hungry and asking to eat, however, we cannot allow her any po intake given impending surgical procedure. [id number] ordered Patient sent to the OR *DC/Admit/Observation/Transfer Diagnosis at time of Disposition: Incomplete with delayed or excessive hemorrhage - Discharge Dispostion Condition at time of disposition: Guarded Decision to Admit order: Yes - Referrals - Patient Instructions - Post Discharge Activity
[2018-08-07] MEDS ORDERED: ACETAMINOPHEN 325 MG TABLET (FP) PO ONE (07:32)
[2018-08-07] MEDS ORDERED: ACETAMINOPHEN 325 MG TABLET (FP) ONE (08:23)
[2018-08-07] MEDS ORDERED: METHYLERGONOVINE MALEATE 0.2 MG/1 ML AMP IM ONE (08:49)
[2018-08-07] MEDS ORDERED: SODIUM CHLORIDE 1,000 ML IV STA (09:34)
[2018-08-07] MEDS ORDERED: LOPERAMIDE HCL 2 MG CAPSULE PO ONE (09:34)
[2018-08-07] MEDS ORDERED: LOPERAMIDE HCL 2 MG CAPSULE ONE (09:51)
[2018-08-07 14:18] LABS: BASO % 0.5 % (0-2.0); EOS % 0.2 % (0-4.5); HEMATOCRIT 26.9 % (32.4-45.2); HEMOGLOBIN 8.5 GM/dL (10.7-15.3); LYMPH % 16.9 % (8-40); MCH 22.9 pg (25.7-33.7); MCHC 31.7 g/dl (32.0-36.0); MEAN CELL VOLUME 72.3 fl (80-96); MEAN PLT VOLUME 10.1 fl (7.5-11.1); MONO % 2.8 % (3.8-10.2); NEUT % 79.6 % (42.8-82.8); PLATELET COUNT 209 K/MM3 (134-434); RBC 3.72 M/mm3 (3.60-5.2); RDW 15.4 % (11.6-15.6); WHITE BLOOD COUNT 9.6 K/mm3 (4.0-10.0)
[2018-08-07] MEDS ORDERED: DEXTROSE 5%-LACTATED RINGERS 1,000 ML IV SCH (15:00)
--- NOTE | 2018-08-07 15:03 | CON.OBG ---
Consult Consult Specialty:: OB / SUPERVISOR TYPE DISK QUALITY CONTROL Reason for Consultation:: Vaginal bleeding - History of Present Illness Chief Complaint: Heavy vaginal bleeding History of Present Illness: 33 yo status post induced with Misoprostol at 12 weeks gestation, presents to ER c/o heavy vaginal bleeding associated with diarrhea and abdominal cramps. - History Source History Provided By: Patient Limitations to Obtaining History: No Limitations - Past Medical History Gastrointestinal: Yes: Constipation, Gastritis ...LMP: 04/14/18 ...: No ...Para: 3 - Past Surgical History Past Surgical History: Yes: Appendectomy (2001), (05/10/2015) - Alcohol/Substance Use Hx Alcohol Use: No History of Substance Use: reports: None - Smoking History Smoking history: Never smoked Have you smoked in the past 12 months: No - Social History Usual Living Arrangement: With Significant Other Home Medications - Allergies Allergies/Adverse Reactions: Allergies Allergy/AdvReac Type Severity Reaction Status Date / Time No Known Allergies Allergy Verified 08/07/18 06:07 - Home Medications Home Medications: Ambulatory Orders Ferrous Sulfate [Feosol] 325 mg PO BID 01/08/17 Vitamins (Sjr) - 1 tab PO DAILY 01/08/17 Acetaminophen [Tylenol .Regular Strength -] 500 mg PO Q4H PRN #30 tablet Ferrous Sulfate [Feosol] 325 mg PO BID #60 tab 01/09/17 Ibuprofen [Motrin -] 600 mg PO Q4H PRN #30 tablet 01/09/17 Vitamins (Sjr) - 1 tab PO DAILY #30 tablet 01/09/17 Family Disease History - Family Disease History Family History: Unremarkable Review of Systems - Review of Systems Constitutional: reports: Malaise Eyes: reports: No Symptoms HENT: reports: No Symptoms Neck: reports: No Symptoms Gastrointestinal: reports: No Symptoms Genitourinary: reports: Vaginal Bleeding Breasts: reports: No Symptoms Reported Musculoskeletal: reports: No Symptoms Integumentary: reports: No Symptoms Neurological: reports: No Symptoms Endocrine: reports: No Symptoms Psychiatric: reports: No Symptoms Pain Intensity: 3 Physical Exam-SUPERVISOR TYPE DISK QUALITY CONTROL Vital Signs: Vital Signs Temperature Pulse Rate 80 08/07/18 06:05 Respiratory Rate 18 08/07/18 06:05 Blood Pressure 108/76 08/07/18 06:05 O2 Sat by Pulse Oximetry (%) 100 08/07/18 06:05 Constitutional: Yes: No Distress Eyes: Yes: Conjunctiva Clear HENT: Yes: Atraumatic Neck: Yes: Supple Cardiovascular: Yes: Regular Rate and Rhythm Respiratory: Yes: Regular Gastrointestinal: Yes: Normal Bowel Sounds External Genitalia: Yes: Normal Vaginal Exam: Yes: Bleeding Cervix: Yes: Bleeding Breast(s): Yes: WNL Musculoskeletal: Yes: WNL Extremities: Yes: WNL Neurological: Yes: Alert, Oriented ...Motor Strength: WNL Psychiatric: Yes: Alert, Oriented Labs: CBC, BMP 08/07/18 13:37 08/07/18 06:38 Problem List - Problems (1) Incomplete with delayed or excessive hemorrhage Code(s): O03.1 - DELAYED OR EXCESSIVE HEMOR FOLLOWING INCMPL SPON Assessment/Plan Incomplete Product of conception expelled Continue observation Call MD if bleeding resumes Consider suction D&C if bleeding resumes
[2018-08-07] MEDS ORDERED: PROPOFOL 20 ML ONE (16:35)
[2018-08-07] MEDS ORDERED: MIDAZOLAM HCL 2 MG/2 ML SINGLE DOSE VIAL ONE (16:35)
[2018-08-07] MEDS ORDERED: DEXAMETHASONE SOD PHOSPHATE 4 MG/1 ML VIAL ONE (16:37)
[2018-08-07] MEDS ORDERED: LIDOCAINE HCL/PF 2% SDV 5ML VIAL ONE (16:37)
--- NOTE | 2018-08-07 16:56 | OP ---
Operative Note - Note: Operative Date: 08/07/18 Pre-Operative Diagnosis: Incomplete Operation: Suction D&C Findings: Open cervical os with heavy bleeding Post-Operative Diagnosis: Same as Pre-op Surgeon: Ailyn Hemphill Anesthesia: General Specimens Removed: Product of conception Operative Report Dictated: Yes
[2018-08-07] MEDS ORDERED: oxyCODONE HCL 5 MG TABLET PO PRN (17:11)
[2018-08-07] MEDS ORDERED: ONDANSETRON 4 MG/2 ML VIAL IVPUSH PRN (17:11)
[2018-08-07] MEDS ORDERED: PROMETHAZINE HCL 25 MG/1 ML VIAL IVPUSH PRN (17:11)
[2018-08-07] MEDS ORDERED: KETOROLAC TROMETHAMINE 30 MG/1 ML VIAL ONE (17:29)
[2018-08-07 20:57] VITALS: BP 100/55; PULSE 82
[2018-08-07 21:00] VITALS: TEMP 98.7
--- NOTE | 2018-08-10 23:40 | OP ---
DATE OF OPERATION: 08/07/2018 PREOPERATIVE DIAGNOSIS: Incomplete . POSTOPERATIVE DIAGNOSIS: Incomplete . PROCEDURE: Suction dilation and curettage. SURGEON: Ailyn Hemphill M.D. HAM DOCTOR: None ANESTHESIA: General anesthesia COMPLICATIONS: None. ESTIMATED BLOOD LOSS: 100 mL PROCEDURE: Patient was taken to the operating room where general anesthesia was administered. Patient was then prepped and draped in proper sterile fashion. She was placed in lithotomy position. A weighted speculum was placed in the vagina. The anterior lip of the cervix was grasped with a single-toothed tenaculum. A 10-mm suction curet was then gently introduced into the uterine cavity. The suction curet was rotated to clear the uterus of all products of conception. A sharp curettage was then performed; the suction curet was then reintroduced to clear the uterus of all remaining products of conception. When finished, the instruments were removed. The patient was taken out of lithotomy position. She was taken to PACU in stable condition. Pathology : Products of conception. AILYN HEMPHILL M.D. [id number] MTDD
--- NOTE | 2018-08-11 16:19 | PATH ---
Surgical Pathology Report Patient Name: ADAL ARMIJO Med. Rec. #: [id number] /Age/Gender: 1985 (Age: 33) / F Account: [id number] Location: AMBULATORY SURG Taken: 08/07/2018 Received: 08/07/2018 Reported: 08/11/2018 Physicians: Nelson Prater Specimen(s) Received A: PRODUCTS OF CONCEPTION B: PRODUCTS OF CONCEPTION Clinical History A1 was diagnosed with demise at the time of her first ultrasound at 11 WGA. She took missed processed all last night and presented to ED with heavy bleeding Final Diagnosis A. PRODUCTS OF CONCEPTION: BLOOD CLOT. NO CHORIONIC VILLI PRESENT. B. PRODUCTS OF CONCEPTION: CHORIONIC VILLI PRESENT, CONSISTENT WITH PRODUCTS OF CONCEPTION. Electronically Signed Lisa Hodgson M.D. Gross Description A. Received fresh, labeled with the patient's name and indicated on the requisition to be products of conception, is a 13.0 x 11.5 x 2.5 cm aggregate of red-brown blood clot. No definite villous tissue or somatic tissue is identified. A wireless sales representative portion is submitted in 3 cassettes. B. Received in formalin labeled "products of conception," is an 11.0 x 7.0 x 1.8 cm aggregate of whyte-brown soft tissue fragments. Villous tissue is identified. No somatic tissue is identified. A Pattern And Chain Maker portion is submitted in one cassette. DL/08/07/2018 saudi/08/07/2018
== END 2018-08-07 20:20 | disposition home or self-care (01) ==
LOC: JER 06:03 → JASUSAT 16:10
PROVIDERS: ATTEND Obstetrics & Gynecology
PROC: 10D17ZZ Extraction of Products of Conception, Retained, Via Natural or Artificial Opening (ICD-10-PCS; principal; 2018-08-07 17:30)
DX: O03.4 Incomplete spontaneous abortion without complication (principal)
CPT/HCPCS: 36415; 76817-TC; 80053; 84702; 85025; 85610; 86850; 86900; 86901; 88305-TC; 94760; 99282-25; J7030

== ENCOUNTER 2018-08-12 14:57 | Observation (INO) | payer OTHER ==
[2018-08-12 15:10] VITALS: BMI 28.1
--- NOTE | 2018-08-12 15:11 | PDOC ---
Rapid Medical Evaluation Time Seen by Provider: 08/12/18 15:05 Medical Evaluation: Allergies Allergy/AdvReac Type Severity Reaction Status Date / Time No Known Allergies Allergy Verified 08/07/18 06:07 08/12/18 15:10 I have performed a brief in-person evaluation of this patient. The patient presents with a chief complaint of: s/p recent miscarriage, here w/ weakness, told very anemic on labs in pmd's office few days ago. No sob or syncope. No vag bleed at this time. No h/o transfusions Pertinent physical exam findings:Tachy to 112 I have ordered the following:labs The patient will proceed to the ED for further evaluation. Discharge Disposition - Diagnosis Weakness - Referrals - Patient Instructions - Post Discharge Activity
[2018-08-12] MEDS ORDERED: SODIUM CHLORIDE 0.9% 500 ML INFUS.BAG IV ONE (15:35)
[2018-08-12 15:44] LABS: BASO % 1.2 % (0-2.0); EOS % 2.2 % (0-4.5); HEMATOCRIT 19.8 % (32.4-45.2); HEMOGLOBIN 6.1 GM/dL (10.7-15.3); LYMPH % 29.1 % (8-40); MCH 23.4 pg (25.7-33.7); MCHC 30.7 g/dl (32.0-36.0); MEAN CELL VOLUME 76.2 fl (80-96); MEAN PLT VOLUME 8.6 fl (7.5-11.1); MONO % 6.5 % (3.8-10.2); PLATELET COUNT 318 K/MM3 (134-434); RBC 2.59 M/mm3 (3.60-5.2); RDW 15.8 % (11.6-15.6); WHITE BLOOD COUNT 13.3 K/mm3 (4.0-10.0)
--- NOTE | 2018-08-12 16:06 | PDOC ---
History of Present Illness - General Chief Complaint: Blood Transfusion Stated Complaint: For blood Transfusion Time Seen by Provider: 08/12/18 15:05 History Source: Patient Exam Limitations: No Limitations - History of Present Illness Initial Comments: 33 yo A3 with no pmh presents to the ER 5 days after a suction D&C by Dr. Hemphill. She had an outpatient US done which showed no HR. She was given misoprostol and had her D&C on Friday. Over the weekend she was feeling week and had exertional dyspnea so she went to her primary clinic where she had a cbc done which showed she was anemic and needed a transfusion. Here in the ER she endorses spotting and slight dyspnea. She took iron and folic acid during the . Denies recent fevers, chills, infections, sob, or difficulty breathing. Allergies: NKA, NKDA OB: Dr. Hemphill PCP: [facility] PSH: 2 C-sections, 1 D&C, appendectomy. Social Hx: Denies smoking, Drinking, or other substance. Past History - Past Medical History Allergies/Adverse Reactions: Allergies Allergy/AdvReac Type Severity Reaction Status Date / Time No Known Allergies Allergy Verified 08/07/18 06:07 Home Medications: Ambulatory Orders Ferrous Sulfate [Feosol] 325 mg PO BID 01/08/17 Vitamins (Sjr) - 1 tab PO DAILY 01/08/17 Acetaminophen [Tylenol .Regular Strength -] 500 mg PO Q4H PRN #30 tablet Ferrous Sulfate [Feosol] 325 mg PO BID #60 tab 01/09/17 Ibuprofen [Motrin -] 600 mg PO Q4H PRN #30 tablet 01/09/17 Vitamins (Sjr) - 1 tab PO DAILY #30 tablet 01/09/17 Asthma: No Cancer: No Cardiac Disorders: No COPD: No Diabetes: No HTN: No Seizures: No Thyroid Disease: No - Suicide/Smoking/Psychosocial Hx Smoking History: Unknown if ever smoked Have you smoked in the past 12 months: No Information on smoking cessation initiated: No Hx Alcohol Use: No Drug/Substance Use Hx: No Hx Substance Use Treatment: No Review of Systems - Review of Systems Able to Perform ROS?: Yes Comments:: CONSTITUTIONAL: Present: Fatigue Absent: fever, no chills EYES: Absent: visual changes ENT: Absent: ear pain, no sore throat CARDIOVASCULAR: Present: Palpitations, lightheadedness Absent: chest pain RESPIRATORY: Absent: cough, no SOB GI: Absent: abdominal pain, no nausea, no vomiting, no constipation, no diarrhea GENITOURINARY: Absent: dysuria, no frequency, no hematuria MUSKULOSKELETAL: Absent: back pain, no arthralgia, no myalgia SKIN: Absent: rash NEURO: Absent: headache *Physical Exam - Vital Signs Last Vital Signs Temp Pulse Resp BP Pulse Ox 98.6 F 113 H 20 126/57 L 100 08/12/18 15:06 08/12/18 15:06 08/12/18 15:06 08/12/18 15:06 08/12/18 15:06 - Physical Exam Comments: GENERAL: Patient is pale. Well-appearing, well-nourished. No apparent distress. HEENT: Normocephalic, atraumatic. PERRL, EOM intact. CARDIOVASCULAR: Tachycardic rate. Normal S1, S2. Regular rhythm. PULMONARY: No evidence of respiratory distress. Lungs clear to auscultation bilaterally. No wheezing, rales or rhonchi. ABDOMEN: Soft, non-distended, non-tender. EXTREMITIES: Normal ROM in all four extremities. No gross deformities. SKIN: Warm, dry. No rash NEUROLOGICAL: No focal neurological deficits. ED Treatment Course - LABORATORY CBC & Chemistry Diagram: 08/12/18 15:31 08/12/18 15:31 - ADDITIONAL ORDERS Additional order review: 08/12/18 15:31 RBC 2.59 L MCV 76.2 L MCHC 30.7 L RDW 15.8 H MPV 8.6 D Neutrophils % 61.0 D Lymphocytes % 29.1 D Monocytes % 6.5 D Eosinophils % 2.2 D Basophils % 1.2 - Medications Given in the ED: ED Medications Discontinued Medications Generic Name Dose Route Start Last Admin Trade Name Freq PRN Reason Stop Dose Admin Sodium Chloride 1,000 ml 08/12/18 15:35 08/12/18 15:46 Normal Saline - IV 08/12/18 15:36 1,000 ml ONCE ONE Administration Medical Decision Making - Medical Decision Making 33 yo A3 with no pmh presents to the ER 5 days after a suction D&C by Dr. Hemphill. She had an outpatient US done which showed no HR. She was given misoprostol and had her D&C on Friday. Over the weekend she was feeling week and had exertional dyspnea so she went to her primary clinic where she had a cbc done which showed she was anemic and needed a transfusion. Here in the ER she endorses spotting and slight dyspnea. She took iron and folic acid during the . Denies recent fevers, chills, infections, sob, or difficulty breathing. VS: Diastolic hypotension, tachycardia. DDx IBNLT: Anemia from persistent vaginal bleeding, electrolyte/metabolic disturbance Plan: Labs, IV hydration, Possible PRBC, re-assess. - Hb is 6.1 - Will transfuse and admit to Obs *DC/Admit/Observation/Transfer Diagnosis at time of Disposition: Weakness, Anemia, Anemia requiring transfusions - Discharge Dispostion Condition at time of disposition: Stable Decision to Admit order: Yes - Referrals Referrals: Leidy Luque MD [Primary Care Provider] - - Patient Instructions - Post Discharge Activity
[2018-08-12 16:12] LABS: ALBUMIN 3.5 g/dl (3.4-5.0); ALK PHOS 56 U/L (45-117); ANION GAP 5 MMOL/L (8-16); BILIRUBIN,TOTAL 0.2 mg/dL (0.2-1); BLOOD UREA NITROGEN 9 mg/dL (7-18); CALCIUM 8.9 mg/dL (8.5-10.1); CHLORIDE 109 mmol/L (98-107); CO2 25 mmol/L (21-32); CREATININE 0.5 mg/dL (0.55-1.3); GLUCOSE,RANDOM 88 mg/dL (74-106); POTASSIUM 3.8 mmol/L (3.5-5.1); SGOT/AST 29 U/L (15-37); SGPT/ALT 31 U/L (13-61); SODIUM 139 mmol/L (136-145); TOT PROT 6.8 g/dl (6.4-8.2)
[2018-08-12 16:18] LABS: INR 0.95 (0.83-1.09); PROTHROMBIN TIME (PATIENT) 11.2 SEC (9.7-13.0)
[2018-08-12 16:35] LABS: ANISOCYTOSIS 1+; PLATELET ESTIMATE ADEQUATE; TARGET CELLS 1+; TEAR DROP CELLS 1+
--- NOTE | 2018-08-12 16:49 | PDOC ---
Documentation entered by Marissa Narvaez SCRIBE, acting as scribe for Fidelia Muñoz MD. Fidelia Muñoz MD: This documentation has been prepared by the Brice peace Sammi, SCRIBE, under my direction and personally reviewed by me in its entirety. I confirm that the documentation accurately reflects all work, treatment, procedures, and medical decision making performed by me. Attending Attestation - Resident Resident Name: Lars Rodas - ED Attending Attestation I have performed the following: I have examined & evaluated the patient, The case was reviewed & discussed with the resident, I agree w/resident's findings & plan, Exceptions are as noted - HPI HPI: 08/12/18 16:19 The patient is a 33 year old, A3, female, with no significant PMH, who presents today to the emergency department with onset spotting and mild dyspnea s/p D&C [address] Hemphill. Patient reports generalized weakness and dyspnea which began over the weekend, prompting her to see her PCP, where blood tests showed she was anemic. The patient denies chest pain, headache and dizziness. Denies fever, chills, nausea, vomit, diarrhea and constipation. Denies dysuria, frequency, urgency and hematuria. Allergies: NKA Past surgical history: 2 C-sec, 1 D&C PCP: [facility] OB: Dr. Hemphill - Physicial Exam PE: 08/12/18 16:29 GENERAL: The patient is in no acute distress. ENT: Ears normal, nares patent, oropharynx clear without exudates. Moist mucous membranes. Conjunctiva pale NECK: Normal range of motion, supple LUNGS: Breath sounds equal, clear to auscultation bilaterally. No wheezes, and no crackles. HEART:Regular rate and rhythm, normal S1 and S2 without murmur, rub or gallop. ABDOMEN: Soft, nontender, normoactive bowel sounds. EXTREMITIES: Normal range of motion, no edema. NEUROLOGICAL: Cranial nerves II through XII grossly intact. Normal speech. No focal neurological deficits. SKIN: Warm, Dry, normal turgor, no rashes or lesions noted. 08/12/18 16:31 - Medical Decision Making 08/12/18 16:43 33 yo F 5 days s/p suction D&C reports generalized weakness and dizziness Pt followed up with ob yesterday Labs drawn and reveal acute anemia Will do : Repeat labs PRBCs OBS EKG : ST rate of 110 bpm, axis nml, intervals nml, no st elevation or depression , t waves upright 08/12/18 16:48 Laboratory Tests 08/07/18 08/12/18 08/12/18 13:37 15:31 15:31 WBC 9.6 13.3 H Hgb 8.5 L 6.1 L* Hct 26.9 L D 19.8 L D Plt Count 209 318 D BUN 9 Creatinine 0.5 L Serum , Qual 08/12/18 15:32 WBC Hgb Hct Plt Count BUN Creatinine Serum , Qual Positive clinical Impression: symptomatic anemia, initial presentation PRBCs ordered 08/12/18 18:02
--- NOTE | 2018-08-12 18:27 | HP ---
Admitting History and Physical - Primary Care Physician PCP: Genet Jaimes - Admission History of Present Illness: 33 year old, A3, female, with no significant PMH, who presents today to the emergency department with onset spotting and mild dyspnea s/p D&C [address] Hemphill. Patient reports generalized weakness and dyspnea which began over the weekend, prompting her to see her PCP, where blood tests showed she was anemic. The patient denies chest pain, headache and dizziness. - Past Medical History Gastrointestinal: Yes: Constipation, Gastritis ...LMP: 04/14/18 Heme/Onc: Yes: Anemia - Past Surgical History Past Surgical History: Yes: Appendectomy (2001), (05/10/2015) - Smoking History Smoking history: Unknown if ever smoked Have you smoked in the past 12 months: No - Alcohol/Substance Use Hx Alcohol Use: No History of Substance Use: reports: None Home Medications - Allergies Allergies/Adverse Reactions: Allergies Allergy/AdvReac Type Severity Reaction Status Date / Time No Known Allergies Allergy Verified 08/07/18 06:07 - Home Medications Home Medications: Ambulatory Orders Ferrous Sulfate [Feosol] 325 mg PO TID #90 tablet 08/13/18 Physical Examination Vital Signs: Vital Signs Temperature 99.5 F 08/12/18 17:53 Pulse Rate 115 H 08/12/18 17:53 Respiratory Rate 18 08/12/18 17:53 Blood Pressure 120/78 08/12/18 17:53 O2 Sat by Pulse Oximetry (%) 100 08/12/18 17:53 Constitutional: Yes: No Distress HENT: Yes: Atraumatic Cardiovascular: Yes: Regular Rate and Rhythm, Other Gastrointestinal: Yes: Normal Bowel Sounds Extremities: Yes: WNL Edema: No Peripheral Pulses WNL: Yes Neurological: Yes: Alert, Oriented Labs: CBC, BMP 08/12/18 15:31 08/12/18 15:31 Problem List - Problems (1) Anemia requiring transfusions Assessment/Plan: 2 u prbc fu cbc radiologic technologist on board Code(s): D64.9 - ANEMIA, UNSPECIFIED Assessment/Plan Laboratory Tests 08/12/18 08/12/18 08/12/18 15:31 15:31 15:31 WBC 13.3 H RBC 2.59 L Hgb 6.1 L* Hct 19.8 L D MCV 76.2 L MCH 23.4 L MCHC 30.7 L RDW 15.8 H Plt Count 318 D MPV 8.6 D Absolute Neuts (auto) 8.1 H Total Counted 100 Neutrophils % 61.0 D Neutrophils % (Manual) 62.0 Band Neutrophils % 4.0 Lymphocytes % 29.1 D Lymphocytes % (Manual) 24.0 Monocytes % 6.5 D Monocytes % (Manual) 4 Eosinophils % 2.2 D Eosinophils % (Manual) 3.0 Basophils % 1.2 Nucleated RBC % 4 H Metamyelocytes 3 H Hypochromia 2+ Platelet Estimate Adequate Platelet Comment No clumping noted Polychromasia 1+ Anisocytosis 1+ Microcytosis 1+ Target Cells 1+ Tear Drop Cells 1+ PT with INR 11.20 INR 0.95 Sodium 139 Potassium 3.8 Chloride 109 H Carbon Dioxide 25 Anion Gap 5 L BUN 9 Creatinine 0.5 L Creat Clearance w eGFR 141.24 Random Glucose 88 Calcium 8.9 Total Bilirubin 0.2 AST 29 ALT 31 Alkaline Phosphatase 56 Total Protein 6.8 Albumin 3.5 Beta HCG, Quant Serum , Qual Blood Type Antibody Screen Crossmatch 08/12/18 08/12/18 08/12/18 15:31 15:31 15:32 WBC RBC Hgb Hct MCV MCH MCHC RDW Plt Count MPV Absolute Neuts (auto) Total Counted Neutrophils % Neutrophils % (Manual) Band Neutrophils % Lymphocytes % Lymphocytes % (Manual) Monocytes % Monocytes % (Manual) Eosinophils % Eosinophils % (Manual) Basophils % Nucleated RBC % Metamyelocytes Hypochromia Platelet Estimate Platelet Comment Polychromasia Anisocytosis Microcytosis Target Cells Tear Drop Cells PT with INR INR Sodium Potassium Chloride Carbon Dioxide Anion Gap BUN Creatinine Creat Clearance w eGFR Random Glucose Calcium Total Bilirubin AST ALT Alkaline Phosphatase Total Protein Albumin Beta HCG, Quant 1400.8 Serum , Qual Positive Blood Type O POSITIVE Antibody Screen Negative Crossmatch See Detail
[2018-08-12] MEDS ORDERED: ACETAMINOPHEN 325 MG TABLET (FP) PO PRN (18:28)
[2018-08-13 07:48] LABS: HEMATOCRIT 25.3 % (32.4-45.2); HEMOGLOBIN 8.1 GM/dL (10.7-15.3); LYMPH % 28.6 % (8-40); MCH 25.7 pg (25.7-33.7); MCHC 32.1 g/dl (32.0-36.0); MEAN CELL VOLUME 80.1 fl (80-96); MEAN PLT VOLUME 9.2 fl (7.5-11.1); MONO % 6.2 % (3.8-10.2); NEUT % 61.2 % (42.8-82.8); PLATELET COUNT 254 K/MM3 (134-434); RBC 3.16 M/mm3 (3.60-5.2); RDW 18.2 % (11.6-15.6); WHITE BLOOD COUNT 9.6 K/mm3 (4.0-10.0)
[2018-08-13 08:12] LABS: ALBUMIN 2.9 g/dl (3.4-5.0); ALK PHOS 47 U/L (45-117); ANION GAP 5 MMOL/L (8-16); BILIRUBIN,TOTAL 0.3 mg/dL (0.2-1); BLOOD UREA NITROGEN 7 mg/dL (7-18); CALCIUM 8.5 mg/dL (8.5-10.1); CHLORIDE 110 mmol/L (98-107); CO2 23 mmol/L (21-32); CREATININE 0.5 mg/dL (0.55-1.3); GLUCOSE,RANDOM 79 mg/dL (74-106); POTASSIUM 4.2 mmol/L (3.5-5.1); SGOT/AST 24 U/L (15-37); SGPT/ALT 26 U/L (13-61); SODIUM 139 mmol/L (136-145); TOT PROT 5.7 g/dl (6.4-8.2)
[2018-08-13 09:07] VITALS: BP 115/72; PULSE 103; TEMP 99
--- NOTE | 2018-08-13 10:21 | CON.OBG ---
Consult Consult Specialty:: INBOUND TELEMARKETER - History of Present Illness Chief Complaint: Anemia History of Present Illness: 33 yo Para 2, status post suction D&C few days ago, sent to ER for blood transfusion after follow up visit with INBOUND TELEMARKETER. In hospital INBOUND TELEMARKETER called for consultation. I came to see patient, she's lying comfortably in bed. Doing well, she denies any dizziness. She wants to go home to take care of young children. - History Source History Provided By: Patient Limitations to Obtaining History: No Limitations - Past Medical History Gastrointestinal: Yes: Constipation, Gastritis ...LMP: 04/14/18 ...: 3 ...Para: 2 - Past Surgical History Past Surgical History: Yes: Appendectomy (2001), (05/10/2015) - Alcohol/Substance Use Hx Alcohol Use: No History of Substance Use: reports: None - Smoking History Smoking history: Unknown if ever smoked Have you smoked in the past 12 months: No - Social History Usual Living Arrangement: With Significant Other Home Medications - Allergies Allergies/Adverse Reactions: Allergies Allergy/AdvReac Type Severity Reaction Status Date / Time No Known Allergies Allergy Verified 08/07/18 06:07 - Home Medications Home Medications: Ambulatory Orders Ferrous Sulfate [Feosol] 325 mg PO TID #90 tablet 08/13/18 Family Disease History - Family Disease History Family History: Unremarkable Review of Systems - Review of Systems Constitutional: denies: Malaise, Weakness Eyes: reports: No Symptoms HENT: reports: No Symptoms Neck: reports: No Symptoms Cardiovascular: denies: Chest Pain, Palpitations, Shortness of Breath Respiratory: denies: SOB on Exertion Gastrointestinal: reports: No Symptoms Genitourinary: denies: Vaginal Bleeding Breasts: reports: No Symptoms Reported Musculoskeletal: reports: No Symptoms Neurological: reports: No Symptoms Endocrine: reports: No Symptoms Hematology/Lymphatic: reports: No Symptoms Psychiatric: reports: No Symptoms Pain Intensity: 0 Physical Exam-INB[employer] TELEMARKETER Vital Signs: Vital Signs Temperature 99.0 F 08/13/18 09:00 Pulse Rate 103 H 08/13/18 09:00 Respiratory Rate 16 08/13/18 09:00 Blood Pressure 115/72 08/13/18 09:00 O2 Sat by Pulse Oximetry (%) 100 08/13/18 02:27 Constitutional: No: No Distress Eyes: Yes: Conjunctiva Clear HENT: Yes: Atraumatic Neck: Yes: Supple Cardiovascular: Yes: Regular Rate and Rhythm Respiratory: Yes: Regular Gastrointestinal: Yes: Normal Bowel Sounds Vaginal Exam: No: Bleeding Cervix: No: Bleeding Uterus: Yes: Firm Breast(s): Yes: WNL Extremities: Yes: WNL Neurological: Yes: Alert, Oriented ...Motor Strength: WNL Psychiatric: Yes: Alert, Oriented Labs: CBC, BMP 08/13/18 05:15 08/13/18 05:15 Assessment/Plan Severe anemia Status post blood transfusion Status post incomplete with delayed hemorrhage Ferrous sulfate ordered Discharge home F/U with INBOUND TELEMARKETER as outpatient
--- NOTE | 2018-08-13 11:13 | DS ---
Physical Examination Vital Signs: Vital Signs Temperature 99.0 F 08/13/18 09:00 Pulse Rate 103 H 08/13/18 09:00 Respiratory Rate 16 08/13/18 09:00 Blood Pressure 115/72 08/13/18 09:00 O2 Sat by Pulse Oximetry (%) 100 08/13/18 10:00 Constitutional: Yes: No Distress HENT: Yes: Atraumatic Neck: Yes: Supple Cardiovascular: Yes: Regular Rate and Rhythm Respiratory: Yes: CTA Bilaterally Gastrointestinal: Yes: Normal Bowel Sounds Extremities: Yes: WNL Neurological: Yes: Alert, Oriented Labs: CBC, BMP 08/13/18 05:15 08/13/18 05:15 Discharge Summary Reason For Visit: TRANSFUSION- DEPEDENT ANEMIA,WEAKNESS Current Active Problems Anemia (Acute) Anemia requiring transfusions (Acute) Weakness (Acute) Condition: Stable - Instructions Referrals: Genet Jaimes MD [Staff Physician] - Ailyn Hemphill MD [Staff Physician] - Disposition: HOME - Home Medications Comprehensive Discharge Medication List: Ambulatory Orders Ferrous Sulfate [Feosol] 325 mg PO TID #90 tablet 08/13/18 dc home fu editor news
[2018-08-13 11:47] LABS: ANISOCYTOSIS 1+; MACROCYTOSIS 1+; OVALOCYTE 1+; PLATELET ESTIMATE NORMAL
--- NOTE | 2018-08-13 13:40 | EKG ---
Test Reason : Blood Pressure : / mmHG Vent. Rate : 110 BPM Atrial Rate : 110 BPM P-R Int : 136 ms QRS Dur : 078 ms QT Int : 328 ms P-R-T Axes : 041 013 020 degrees QTc Int : 443 ms SINUS TACHYCARDIA OTHERWISE NORMAL ECG NO PREVIOUS ECGS AVAILABLE Confirmed by KATHRYN HART MD ([id number]) on 08/13/2018 1:40:24 PM Referred By: Confirmed By:KATHRYN HART MD
== END 2018-08-13 11:41 | disposition home or self-care (01) ==
LOC: JER 14:57 → JERBED 16:39 → J6S 18:13
PROVIDERS: ADMIT Internal Medicine; ATTEND Internal Medicine
PROC: 30233N1 Transfusion of Nonautologous Red Blood Cells into Peripheral Vein, Percutaneous Approach (ICD-10-PCS; principal; 2018-08-12)
PROC: 3E0337Z Introduction of Electrolytic and Water Balance Substance into Peripheral Vein, Percutaneous Approach (ICD-10-PCS; 2018-08-12)
DX: D64.89 Other specified anemias (principal); R53.1 Weakness
CPT/HCPCS: 36415; 36430; 36511; 80053; 84702; 84703; 85025; 85610; 86850; 86900; 86901; 86922; 93005; 93010; 99283-25; G0378; P9038; P9058

== ENCOUNTER 2018-11-10 14:21 | Emergency (ER) | payer OTHER ==
--- NOTE | 2018-11-10 14:43 | PDOC ---
History of Present Illness - General Stated Complaint: Shortness of Breath Time Seen by Provider: 11/10/18 14:41 - History of Present Illness Initial Comments: 11/10/18 14:48 33 y/o F with history of induced c/b anemia s/p transfusion and D&C presenting with 1 week of URI symptoms associated with generalized weakness brought in by EMS for 1 hour of pre-syncope, palpitations, and shortness of breath at rest. She stated her symptoms started after getting routine blood work at her PCPs office 5 days ago. Later that evening she developed rhinorrhea , cough productive of yellow sputum, and generalized weakness. She reports subjective fever that improved with tylenol. She also reports increased urinary frequency with no pain or hematuria. While she was at rest today, she developed SOB, palpitations, and felt like she was going to pass out. Denies chills, nausea, emesis, chest pain, recent travel. Reports LMP was September and is expecting period tomorrow and is already feeling lower abdominal cramps typical of period Allergies: NKDA OB: Dr. Hemphill PCP: [facility] PSH: 2 C-sections, 1 D&C, appendectomy. Social Hx: Denies smoking, drinking, or other substance. Past History - Past Medical History Allergies/Adverse Reactions: Allergies Allergy/AdvReac Type Severity Reaction Status Date / Time No Known Allergies Allergy Verified 08/07/18 06:07 Home Medications: Ambulatory Orders Ferrous Sulfate [Feosol] 325 mg PO TID #90 tablet 08/13/18 Anemia: Yes Asthma: No Cancer: No Cardiac Disorders: No COPD: No Diabetes: No HTN: No Seizures: No Thyroid Disease: No - Suicide/Smoking/Psychosocial Hx Smoking History: Unknown if ever smoked Have you smoked in the past 12 months: No Hx Alcohol Use: No Drug/Substance Use Hx: No Hx Substance Use Treatment: No Review of Systems - Review of Systems Comments:: 11/10/18 15:48 GENERAL/CONSTITUTIONAL: +fever and generalized weakness. HEAD, EYES, EARS, NOSE AND THROAT: No change in vision. No ear pain or discharge. No sore throat. CARDIOVASCULAR: +shortness of breath RESPIRATORY: + productive cough. no wheezing, or hemoptysis. GASTROINTESTINAL: No nausea, vomiting, diarrhea or constipation. GENITOURINARY: +frequency. No dysuria, or change in urination. MUSCULOSKELETAL: No joint or muscle swelling or pain. No neck or back pain. SKIN: No rash NEUROLOGIC: No headache, vertigo, loss of consciousness, or change in strength/ sensation. ENDOCRINE: No increased thirst. No abnormal weight change HEMATOLOGIC/LYMPHATIC: No anemia, easy bleeding, or history of blood clots. ALLERGIC/IMMUNOLOGIC: No hives or skin allergy. *Physical Exam - Physical Exam Comments: 11/10/18 15:51 GENERAL: Awake, alert, and fully oriented, in no acute distress HEAD: No signs of trauma, normocephalic, atraumatic EYES: EOMI, sclera anicteric, conjunctiva clear ENT: Auricles normal inspection, hearing grossly normal, nares patent, mild erythema in the posterior oropharynx. Moist mucosa NECK: Normal ROM, supple, no lymphadenopathy, JVD, or masses LUNGS: No distress, speaks full sentences, clear to auscultation bilaterally HEART: tachycardia 110s-130s, normal S1 and S2, systolic murmur, peripheral pulses normal and equal bilaterally. ABDOMEN: Soft, nontender, normoactive bowel sounds. No guarding, no rebound. No masses EXTREMITIES : Normal inspection, Normal range of motion, no edema. No clubbing or cyanosis. NEUROLOGICAL: Cranial nerves II through XII grossly intact. Normal speech, normal gait, no focal sensorimotor deficits SKIN: Warm, Dry, normal turgor, no rashes or lesions noted ED Treatment Course - LABORATORY CBC & Chemistry Diagram: 11/10/18 15:45 11/10/18 15:45 Medical Decision Making - Medical Decision Making 11/10/18 15:53 33 y/o F with history of induced c/b anemia s/p transfusion and D&C presenting with 1 week of URI symptoms associated with generalized weakness brought in by EMS for 1 hour of pre-syncope, palpitations, and shortness of breath at rest. Vitals notable for febrile 100.4 and tachycardia 110s-130s. Physical exam with mild posterior oropharynx erythema without exudates and mildly edematous turbinates and systolic murmur -CBC, CMP, UA, Upreg, trop -EKG, CXR -IVF, tylenol 11/10/18 17:18 EKG: Sinus tach with absent JAZMINE, STD. Nml interval duration and axis. Nml R wave progression. Absent Q waves. CXR: no acute cardiopulmonary problems States no longer having SOB; feels improved Discussed EKG and CXR with her and return precautions; patient understands instructions and is comfortable going home *DC/Admit/Observation/Transfer Diagnosis at time of Disposition: Shortness of breath URI (upper respiratory infection) Qualifiers: URI type: unspecified URI Qualified Code(s): J06.9 - Acute upper respiratory infection, unspecified - Discharge Dispostion Disposition: HOME Condition at time of disposition: Improved Decision to Admit order: No - Referrals - Patient Instructions Printed Discharge Instructions: DI for Viral Upper Respiratory Infection -- Adult Additional Instructions: Additional Instructions: Please return to the emergency department with any new or worsening symptoms or concerns including shortness of breath, severe chest pain, fainting. Please follow up with your primary care physician within 2-3 days. Please drink plenty of fluids and ensure adequate food intake For symptomatic relief of congestion, may purchase Mucinex over the counter - Post Discharge Activity
[2018-11-10] MEDS ORDERED: ACETAMINOPHEN 500 MG TABLET (FP) PO ONE (15:23)
[2018-11-10] MEDS ORDERED: SODIUM CHLORIDE 1,000 ML IV STA (15:23)
[2018-11-10] MEDS ORDERED: ACETAMINOPHEN 325 MG TABLET (FP) ONE (15:39)
[2018-11-10 16:18] LABS: URINE APPEARANCE CLEAR; URINE BILIRUBIN NEGATIVE (NEGATIVE); URINE COLOR YELLOW; URINE GLUCOSE (UA) TRACE (NEGATIVE); URINE KETONE NEGATIVE (NEGATIVE); URINE LEUK ESTERASE NEGATIVE (NEGATIVE); URINE NITRITE NEGATIVE (NEGATIVE); URINE PROTEIN NEGATIVE (NEGATIVE); URINE UROBILINOGEN 0.2 mg/dL (0.2-1.0)
[2018-11-10 16:30] LABS: BASO % 0.8 % (0-2.0); EOS % 0.9 % (0-4.5); HEMATOCRIT 36.9 % (32.4-45.2); HEMOGLOBIN 11.8 GM/dL (10.7-15.3); MCHC 31.8 g/dl (32.0-36.0); MEAN CELL VOLUME 72.2 fl (80-96); MONO % 7.5 % (3.8-10.2); NEUT % 76.8 % (42.8-82.8); PLATELET COUNT 188 K/MM3 (134-434); RBC 5.11 M/mm3 (3.60-5.2); RDW 13.9 % (11.6-15.6); WHITE BLOOD COUNT 6.5 K/mm3 (4.0-10.0)
--- NOTE | 2018-11-10 16:30 | PDOC ---
Documentation entered by Demi Escobar SCRIBE, acting as scribe for Abrahan Loredo MD. Abrahan Loredo MD: This documentation has been prepared by the scribe, Demi Escobar SCRIBE, under my direction and personally reviewed by me in its entirety. I confirm that the documentation accurately reflects all work, treatment, procedures, and medical decision making performed by me. Attending Attestation - Resident Resident Name: Matti Stockton - ED Attending Attestation I have performed the following: I have examined & evaluated the patient, The case was reviewed & discussed with the resident, I agree w/resident's findings & plan, Exceptions are as noted - HPI HPI: 11/10/18 15:49 33y - Physicial Exam PE: 11/10/18 15:49 GENERAL: The patient is awake, alert, and fully oriented, Nontoxic - in no acute distress. HEAD: Normocephalic, atraumatic. EYES: extraocular movements intact, sclera anicteric, conjunctiva clear. ENT: Normal voice, Moist mucous membranes, no erythema/exudates in posterior pharynx NECK: Normal range of motion, supple LUNGS: Breath sounds equal, clear to auscultation bilaterally. No wheezes, no rhonchi, no rales. HEART: tachcyardic, normal S1 and S2 without murmur, rub or gallop. ABDOMEN: Soft, nontender, No guarding, no rebound. No CVA tenderness EXTREMITIES: Normal range of motion, no edema. Neg homans, no calf tenderess NEUROLOGICAL: No facial assymetry, Normal speech, PSYCH: Normal mood, normal affect. SKIN: Warm, Dry, normal turgor, - Medical Decision Making 11/10/18 15:31 33y F presenting with complaint of nasal congestion, cough productive of yelloiwsh sputum, sore throat, x 5 days and urinary frequency for 2week without dysuria/foul smelling urine, vaginal discharge or bleeding. Pt noted febrile here in ED. Denies any chest pain, sob, leg/calf swelling or pain lengthy travel, hemopytysis, family hx of pe/dvt. 11/10/18 17:22 labs reviewed cxr neg for infiltrate will dc with suppotive care for uri return precautions were discussed Heart Score/ECG Review - ECG Impressions Comment:: 11/10/18 17:22 Twelve-lead EKG was performed and reviewed by me. There is normal sinus rhythm with a rate of 105 The axis is normal. The intervals are normal. nonspecific TW abnorality sinus tachycardia
[2018-11-10 16:32] LABS: ALBUMIN 3.8 g/dl (3.4-5.0); ALK PHOS 94 U/L (45-117); ANION GAP 6 MMOL/L (8-16); BILIRUBIN,TOTAL 0.2 mg/dL (0.2-1); BLOOD UREA NITROGEN 7.3 mg/dL (7-18); CALCIUM 9.3 mg/dL (8.5-10.1); CHLORIDE 111 mmol/L (98-107); CO2 23 mmol/L (21-32); CREATININE 0.7 mg/dL (0.55-1.3); GLUCOSE,RANDOM 136 mg/dL (74-106); POTASSIUM 3.6 mmol/L (3.5-5.1); SGOT/AST 149 U/L (15-37); SGPT/ALT 176 U/L (13-61); SODIUM 139 mmol/L (136-145); TOT PROT 7.4 g/dl (6.4-8.2)
[2018-11-10 16:57] VITALS: BP 119/72; PULSE 97; TEMP 98.6
--- NOTE | 2018-11-11 14:33 | EKG ---
Test Reason : Blood Pressure : / mmHG Vent. Rate : 105 BPM Atrial Rate : 105 BPM P-R Int : 158 ms QRS Dur : 076 ms QT Int : 346 ms P-R-T Axes : 072 -08 026 degrees QTc Int : 457 ms SINUS TACHYCARDIA NONSPECIFIC T WAVE ABNORMALITY ABNORMAL ECG WHEN COMPARED WITH ECG OF 12-AUG-2018 17:45, NO SIGNIFICANT CHANGE WAS FOUND Confirmed by GRICELDA NAVARRO MD ([id number]) on 11/11/2018 2:32:56 PM Referred By: Confirmed By:GRICELDA NAVARRO MD
== END 2018-11-10 17:25 | disposition home or self-care (01) ==
LOC: JER 14:21
PROC: 3E0337Z Introduction of Electrolytic and Water Balance Substance into Peripheral Vein, Percutaneous Approach (ICD-10-PCS; principal; 2018-11-10)
DX: J06.9 Acute upper respiratory infection, unspecified (principal); Z86.2 Personal history of diseases of the blood and blood-forming organs and certain disorders involving the immune mechanism
CPT/HCPCS: 36415; 71046-TC-FY; 80053; 81003; 84484; 84703; 85025; 93005; 93010; 96360; 99283-25; J7030

== ENCOUNTER 2019-12-17 06:00 | Inpatient (IN) | payer OTHER ==
[2019-12-17 07:37] VITALS: BMI 26.6
[2019-12-17] MEDS ORDERED: morphine SULFATE/PF 0.5 MG/ML (2cc Syringe - QUVA) EP ONE (07:46)
[2019-12-17] MEDS ORDERED: ONDANSETRON 4 MG/2 ML VIAL IVPUSH PRN (07:46)
[2019-12-17] MEDS ORDERED: CITRIC ACID/SODIUM CITRATE 30 ML UNIT-DOSE CUP PO ONE (08:03)
--- NOTE | 2019-12-17 08:10 | HP ---
Past Medical History - Admission Chief Complaint: Elective History of Present Illness: 34 yo @ 39 weeks gestation, EDC 12/24/19, with 2 prior c-sections, is pre op for repeat and bilateral tubal ligation. History Source: Patient Limitations to Obtaining History: No Limitations - Past Medical History Gastrointestinal: Yes: Constipation, Gastritis ...: 5 ...Para: 2 ...Term: 2 ...: 0 ...Spon : 2 ...Induced : 0 ...Living Children: 0 ...Multiple Gestation: 0 ...LMP: 03/19/19 ... Weeks Gestation by Dates: 39.0 ...EDC by Dates: 12/24/19 ...EDC by Sono: 12/24/19 Heme/Onc: Yes: Anemia - Past Surgical History Past Surgical History: Yes: Appendectomy (2001), (05/10/2015) Hx Myomectomy: No Hx Transabdominal Cerclage: No - Smoking History Smoking history: Never smoked Have you smoked in the past 12 months: No - Alcohol/Substance Use Hx Alcohol Use: No History of Substance Use: reports: None - Social History Usual Living Arrangement: Yes: With Spouse History of Recent Travel: No Home Medications - Allergies Allergies/Adverse Reactions: Allergies Allergy/AdvReac Type Severity Reaction Status Date / Time No Known Allergies Allergy Verified 12/17/19 07:23 - Home Medications Home Medications: Ambulatory Orders Ferrous Sulfate [Feosol] 325 mg PO TID #90 tablet 08/13/18 Family Medical History Family History: Unremarkable Review of Systems - Review of Systems Constitutional: reports: No Symptoms Eyes: reports: No Symptoms HENT: reports: No Symptoms Neck: reports: No Symptoms Cardiovascular: reports: No Symptoms Respiratory: reports: No Symptoms Gastrointestinal: reports: No Symptoms Genitourinary: reports: Pain Neurological: reports: No Symptoms Psychiatric: reports: No Symptoms Pain Intensity: 0 Physical Exam - Maternity Constitutional: Yes: Well Nourished Eyes: Yes: Conjunctiva Clear HENT: Yes: Atraumatic Neck: Yes: Supple Cardiovascular: Yes: Regular Rate and Rhythm Lungs: Clear to auscultation - Abdominal Exam/OB Number of Fetuses: Single Presentation: Vertex Contractions: No - Vaginal Exam/OB Vaginal Bleeding: No - Physical Exam Musculoskeletal: Yes: WNL Extremities: Yes: WNL ...Motor Strength: WNL Psychiatric: Yes: Alert, Oriented Assessment/Plan Previous Pre op for repeat and BTL Consent signed Anesthesia to see patient
[2019-12-17] MEDS ORDERED: morphine SULFATE/PF 0.5 MG/ML (2cc Syringe - QUVA) ONE (08:11)
[2019-12-17] MEDS ORDERED: ceFAZolin SODIUM 1 GM VIAL ONE (08:12)
[2019-12-17] MEDS ORDERED: ELECTROLYTE-148 SOLN 1,000 ML IV SCH (08:15)
[2019-12-17] MEDS ORDERED: PHENYLEPHRINE HCL 10 MG/1 ML SINGLE DOSE VIAL ONE (08:27)
[2019-12-17] MEDS ORDERED: OXYTOCIN 10 UNITS/ML VIAL ONE ×3 (08:38→08:39)
[2019-12-17 09:23] LABS: CORD BASE EXCESS -1.8 mmol/L (0-2); CORD HCO3 24.7 mmHg (20-29); CORD PCO2 48.2 mmHg (30-78); CORD pH 7.327 (7.14-7.44)
[2019-12-17] MEDS ORDERED: oxyCODONE HCL 5 MG TABLET PO PRN (09:39)
[2019-12-17] MEDS ORDERED: IBUPROFEN 800 MG/8 ML IJ IVPB PRN (09:39)
[2019-12-17] MEDS ORDERED: METHYLERGONOVINE MALEATE 0.2 MG/1 ML AMP IM PRN (09:39)
--- NOTE | 2019-12-17 09:43 | OP ---
Operative Note - Note: Operative Date: 12/17/19 Pre-Operative Diagnosis: Elective / Multiparity Operation: Repeat Low Transverse / Bilateral Tubal Ligation Findings: Baby girl in ROT position Post-Operative Diagnosis: Same as Pre-op Surgeon: Ailyn Hemphill Director Case: Riaz Ahmadi Anesthesia: Spinal Specimens Removed: Placenta / Portions of fallopian tubes Estimated Blood Loss (mls): 600
[2019-12-17] MEDS ORDERED: OXYTOCIN 20 UNITS in 0.9% NS 20 UNIT/1,000 ML INFUS.BAG IV ONE (10:44)
[2019-12-17] MEDS: PRENATAL VITAMINS W/ FOLIC ACID TABLET (FP) PO SCH (11:11)
[2019-12-17] MEDS ORDERED: OXYTOCIN 20 UNITS in 0.9% NS 20 UNIT/1,000 ML INFUS.BAG IV SCH (11:45)
--- NOTE | 2019-12-17 14:44 | OP ---
DATE OF OPERATION: 12/17/2019 PREOPERATIVE DIAGNOSIS: Elective section and multiparity. POSTOPERATIVE DIAGNOSIS: Elective section and multiparity. PROCEDURE: Repeat low transverse section and bilateral tubal ligation. SURGEON: Emma Hemphill MD RN PRODUCTION: Riaz Ahmadi PA-C ANESTHESIA: Spinal. COMPLICATION: None. ESTIMATED BLOOD LOSS: 600 mL. PROCEDURE: The patient was taken to the operating room where spinal anesthesia was administered. The patient was then prepped and draped in proper sterile fashion. A Pfannenstiel incision was made and carried down to the underlying layer of fascia. The fascia was then incised in the midline and extended laterally. The superior aspect of the fascial incision was then grasped with a Willie clamp, elevated, and the rectus muscle dissected out bluntly. Attention was then turned to the anterior aspect of the fascial incision, which in a similar fashion was then grasped with a Willie clamp, elevated, and the rectus muscle dissected out bluntly. The rectus muscle was then in the midline. There was no peritoneum noted. Then the vesicouterine peritoneum was then grasped with a pickup and entered sharply with the Metzenbaum scissors. This incision was extended laterally and a bladder flap created digitally. The lower uterine segment was then incised using a 10-blade. This incision was extended laterally and there was difficulty in delivering the head and the vacuum was applied to assist in the delivery. Then the nose and mouth were suctioned and the cord clamped and cut. The was handed to the awaiting machine technician. The placenta was removed manually. The uterus was exteriorized and cleared of all clots and debris. The uterine incision was repaired using 0 Biosyn in a running locked fashion. A second layer of the same suture was used as a means to provide excellent hemostasis. Then attention was then turned to the tubes. Using a Cordell the right tube was then grabbed and tied and doubly tied using a plain gut and using the Metzenbaum scissors a portion of the tube was then excised and the tip of the tube was cauterized using the [place] cautery. The same procedure was performed on the left side. The pelvis was then completely irrigated and the uterus was returned to the abdomen. The rectus muscle was approximated using 2-0 Biosyn; the fascia was reapproximated using 0 Vicryl in a running fashion, and the skin was closed in a subcuticular fashion using 3-0 Vicryl. The patient tolerated the procedure well. The patient was then taken to PACU in stable condition. PATHOLOGY: Placenta and portion of the fallopian tubes. SAGRARIO HEMPHILL M.D. [id number]
[2019-12-17] MEDS: FERROUS SO4 325 MG TABLET (FP) PO SCH (16:58)
--- NOTE | 2019-12-18 06:42 | PN ---
Post Progress Note - Subjective Subjective: 34 yo Para 3 status post repeat , seen and evaluated. Doing well. Post Day: 1 Type of Delivery: Repeat C/S Vital Signs: Vital Signs Temperature 97.9 F 12/18/19 01:34 Pulse Rate 70 12/18/19 01:34 Respiratory Rate 20 12/18/19 06:00 Blood Pressure 117/75 12/18/19 01:34 O2 Sat by Pulse Oximetry (%) 100 12/17/19 11:00 Breast Exam: Yes: Soft Uterus: Yes: Fundus below umbilicus Incision: Yes: Dressing dry and intact Abdomen/GI: Yes: Abdomen soft, Tolerating PO Lochia: Yes: Rubra Lochia, amount: Small Extremities: Yes: Calves non-tender Activity: Ambulating Problem List - Problems (1) Status post repeat low transverse section Code(s): Z98.891 - HISTORY OF UTERINE SCAR FROM PREVIOUS SURGERY Assessment/Plan Status post repeat Low Transverse Ambulation Analgesia as needed Continue routine care
[2019-12-18] MEDS: FERROUS SO4 325 MG TABLET (FP) PO SCH ×2 (08:31→17:26)
[2019-12-18] MEDS: PRENATAL VITAMINS W/ FOLIC ACID TABLET (FP) PO SCH (09:26)
[2019-12-18] MEDS ORDERED: BISACODYL 10 MG SUPP.RECT RC PRN (09:39)
[2019-12-18 10:08] LABS: BASO % 0.4 % (0-2.0); EOS % 1.4 % (0-4.5); HEMATOCRIT 37.3 % (32.4-45.2); HEMOGLOBIN 11.7 GM/dL (10.7-15.3); LYMPH % 8.2 % (8-40); MCH 23.1 pg (25.7-33.7); MCHC 31.4 g/dl (32.0-36.0); MEAN CELL VOLUME 73.6 fl (80-96); MEAN PLT VOLUME 10.7 fl (7.5-11.1); MONO % 6.2 % (3.8-10.2); NEUT % 83.8 % (42.8-82.8); PLATELET COUNT 150 K/MM3 (134-434); RBC 5.07 M/mm3 (3.60-5.2); RDW 15.6 % (11.6-15.6); WHITE BLOOD COUNT 11.1 K/mm3 (4.0-10.0)
--- NOTE | 2019-12-18 10:31 | PN ---
Progress Note (short form) - Note Progress Note: 34F s/p repeat C/S and BTL under spinal with duramorph. No new c/o. Vital Signs Temp 98.4 F 12/18/19 10:00 Pulse 78 12/18/19 10:00 Resp 20 12/18/19 10:00 BP 125/72 12/18/19 10:00 Pulse Ox 99 12/18/19 10:00 Intake & Output 12/17/19 12/17/19 12/18/19 11:59 23:59 11:59 Intake Total 505 006 5239 Output Total 1300 300 500 Balance -800 -180 1050 Weight 155 lb Intake: IV 500 1300 NORMAL SALINE+20 UNITS 1300 OXYTOCIN - 20 unit In 1, 000 ml @ 125 mls/hr IV ASDIR BRII Rx#:[id number] Plasma-Lyte 148 - 1,000 500 ml @ 125 mls/hr IV ASDIR BRII Rx#:[id number] IVPB 250 Oral 120 Output: Urine 1300 300 500 Hicks 1300 300 500 Other: Voiding Method Indwelling Catheter Indwelling Catheter Indwelling Catheter Height 5 ft 4 in Body Mass Index (BMI) 26.6 Weight 6 lb 14 oz Length 19.5 in Weight Measurement Method Stated by Patient - No anesthesia complications
[2019-12-18] MEDS: SIMETHICONE 80 MG TAB.CHEW (FP) PO PRN (12:55)
[2019-12-18] MEDS: IBUPROFEN 600 MG TABLET (FP) PO PRN (12:56)
[2019-12-18] MEDS ORDERED: DIPHTH,PERTUSS(ACELL),TET 0.5 ML DISP.SYRIN IM ONE (20:00)
[2019-12-19] MEDS: IBUPROFEN 600 MG TABLET (FP) PO PRN ×2 (03:40→09:22)
[2019-12-19] MEDS: SIMETHICONE 80 MG TAB.CHEW (FP) PO PRN ×2 (03:40→09:22)
[2019-12-19] MEDS: PRENATAL VITAMINS W/ FOLIC ACID TABLET (FP) PO SCH (09:22)
[2019-12-19] MEDS: FERROUS SO4 325 MG TABLET (FP) PO SCH (09:22)
[2019-12-19 09:53] VITALS: BP 109/68; PULSE 91; TEMP 98.1
--- NOTE | 2019-12-22 15:22 | DS ---
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: Vital Signs Temperature 98.1 F 12/19/19 10:00 Pulse Rate 91 H 12/19/19 09:52 Respiratory Rate 18 12/19/19 09:52 Blood Pressure 109/68 12/19/19 09:52 O2 Sat by Pulse Oximetry (%) 100 12/19/19 09:52 Constitutional: Yes: No Distress Eyes: Yes: Conjunctiva Clear HENT: Yes: Atraumatic Neck: Yes: Supple Cardiovascular: Yes: Regular Rate and Rhythm Respiratory: Yes: Regular Gastrointestinal: Yes: Normal Bowel Sounds External Genitalia: Yes: Normal Uterus: Yes: Firm Musculoskeletal: Yes: WNL Extremities: Yes: WNL Wound/Incision: Yes: Well Approximated, Steri Strips (in place) Neurological: Yes: Alert, Oriented ...Motor Strength: WNL Psychiatric: Yes: Alert, Oriented Labs: CBC, BMP 12/18/19 09:35 Delivery - Delivery Type of Anesthesia: Spinal Episiotomy/Laceration: None EBL (cc): 600 Delivery, Single - Stages of Labor Date of Delivery: 12/17/19 Time of Delivery: 08:41 Time Placenta Delivered: 08:42 - Condition of Title 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 Present: Yes Name: Carlota Garcia Infant Gender: Female Weight: 6 lb 14 oz Position: Right, OT Total Hours ROM (Hrs/Mins): 3mins - 1 Minute Total Score: 9 5 Minutes Total Score: 9 - [place] Feeding Plan Initial Plan: Elected not to breastfeed exclusively throughout hospitalization Discharge Summary Problems reviewed: Yes Reason For Visit: ADMIT SCHEDULED Procedures: Principal: Repeat Low Transverse Hospital Course: Routine post op care Health Concerns: None Plan of Treatment: Analgesia as needed Ambulation F/U with MD in 1 week Goals: Resume regular activities in 4 weeks Condition: Good - Instructions Diet, Activity, Other Instructions: Regular diet No driving, no lifting x 4 weeks F/U with MD in one week Disposition: HOME - Home Medications Comprehensive Discharge Medication List: Ambulatory Orders Ferrous Sulfate [Feosol] 325 mg PO TID #90 tablet 08/13/18 Pnv No.95/Ferrous Fum/Folic AC [ Vitamin Tablet] 1 each PO DAILY #90 tablet 12/19/19
--- NOTE | 2019-12-24 14:01 | PATH ---
Surgical Pathology Report Patient Name: ADAL ARMIJO [facility]. Rec. #: [id number] /Age/Gender: 1985 (Age: 34) / F Account: [id number] Location: [facility] OBS/ENVIRONMENTAL LEAD Taken: 12/17/2019 Received: 12/21/2019 Reported: 12/24/2019 Physicians: Ailyn Hemphill M.D. Specimen(s) Received A: PLACENTA B: RIGHT FALLOPIAN TUBE C: LEFT FALLOPIAN TUBE Clinical History 39 weeks gestation, previous x2 Final Diagnosis A. PLACENTA, SECTION: 377 G THIRD TRIMESTER PLACENTA WITH TRIVASCULAR UMBILICAL CORD AND UNREMARKABLE PLACENTAL MEMBRANES. B. FALLOPIAN TUBE, PORTION, RIGHT, PARTIAL EXCISION: FULL LUMINAL PORTION OF UNREMARKABLE FALLOPIAN TUBE. C. FALLOPIAN TUBE, PORTION, LEFT, PARTIAL EXCISION: FULL LUMINAL PORTION OF UNREMARKABLE FALLOPIAN TUBE. Electronically Signed Blanca Chris M.D. Gross Description A. The specimen is received fresh labeled placenta and is a 377 gram, 20.5 x 15.0 x 2.0 cm. placenta with attached membranes and umbilical cord. The attached membranes are whyte, translucent with focal opacities and insert marginally. The umbilical cord measures 16 cm. in length and averages 1.2 cm. in diameter. The cord inserts eccentrically, 0.5 cm. to the nearest margin. No true knots or strictures are identified. Cut surface of the umbilical cord reveals 3 vessels. The surface is blackburn blue with moderate fibrin deposition and appropriate caliber vessels. The maternal surface is red-brown with focal defects. Sectioning reveals red-brown, spongy parenchyma. No lesions are identified. Carrier Packer sections are submitted in three cassettes as follows: 1- membrane rolls and umbilical cord; 2-3- full thickness sections of placenta. B. Received in formalin labeled "portion of right fallopian tube," is a 0.6 cm in length portion of fallopian tube. No fimbria are present. The outer surface is whyte-otero and smooth. Sectioning reveals an unremarkable lumen. The specimen is bisected and entirely submitted in one cassette. C. Received in formalin labeled "portion of left fallopian tube," is a 0.6 cm in length portion of fallopian tube. No fimbria are present. The outer surface is whyte-otero and smooth. Sectioning reveals an unremarkable lumen. The specimen is bisected and entirely submitted in one cassette. 12/23/2019 [facility]
== END 2019-12-19 14:30 | disposition home or self-care (01) | DRG 540 ==
LOC: JLDR 06:00 → J3W 11:00
PROVIDERS: ADMIT Obstetrics & Gynecology; ATTEND Obstetrics & Gynecology
PROC: 10D00Z1 Extraction of Products of Conception, Low, Open Approach (ICD-10-PCS; principal; 2019-12-17)
PROC: 0UL70ZZ Occlusion of Bilateral Fallopian Tubes, Open Approach (ICD-10-PCS; 2019-12-17)
DX: O82 Encounter for cesarean delivery without indication (principal); Z98.891 History of uterine scar from previous surgery; Z30.2 Encounter for sterilization; Z86.2 Personal history of diseases of the blood and blood-forming organs and certain disorders involving the immune mechanism; Z87.19 Personal history of other diseases of the digestive system; Z3A.39 39 weeks gestation of pregnancy; Z37.0 Single live birth
CPT/HCPCS: 36415; 36600; 82803; 85025; 88302-TC; 88307-TC